=== PATIENT | male | born 1980 | race Caucasian/White ===

== ENCOUNTER → 2017-09-14 11:46 | Outpatient (CLI) | payer OTHER, SELFPAY ==
[2017-09-18 17:52] LABS: Testosterone Free 25.3 pg/mL (35.0-155.0); Testosterone Total 220 ng/dL (250-1100)
== END ==
PROVIDERS: Visit Provider Physician Assistant
DX: E29.1 Testicular hypofunction (principal); Q55.0 Absence and aplasia of testis
CPT/HCPCS: 36415; 84402; 84403

== ENCOUNTER 2018-02-09 02:44 | Emergency (ER) | payer OTHER, SELFPAY ==
--- NOTE | 2018-02-09 02:49 | ED_ITS ---
HPI - Chest Pain General Chief Complaint: Chest Pain Stated Complaint: chest pain left side Time Seen by Provider: 02/09/18 02:49 Source: patient Mode of arrival: ambulatory Limitations: no limitations History of Present Illness HPI narrative: Patient is a 37-year-old otherwise healthy male here for evaluation of left-sided chest pain. He states that the symptoms have been going on for the past couple days. He did take some ibuprofen for that which did not seem to improve. He states that it is left-sided. He states that it is an ache. Not worse with movement. Not worse with palpation. Does say that it is somewhat worse with rule deep inspirations. He is not having any cough. No recent travel. No lower extremity swelling. Has never had anything like this before. Related Data Allergies Allergy/AdvReac Type Severity Reaction Status Date / Time No Known Allergies Allergy Uncoded 02/09/18 02:58 Review of Systems Constitutional Denies fatigue and Denies fever(s) ENT Ears, Nose, Mouth, and Throat: Denies vertigo and Denies dizziness Cardiovascular Reports chest pain, Denies chest pain at rest, Denies syncope, Denies rapid heart rate, Denies pedal edema, Denies irregular heart rhythm, Denies leg edema , Denies lightheadedness, Denies palpitations, Denies dyspnea and Denies slow heart rate Respiratory Denies cough, Denies dyspnea and Denies wheezing Gastrointestinal Gastrointestinal: Denies abdominal pain, Denies nausea and Denies vomiting Musculoskeletal Denies myalgias and Denies arthralgias Integumentary/Breasts Denies rash Neurologic Denies vertigo, Denies dizziness and Denies syncope Endocrine Denies fatigue and Denies palpitations Hematologic/Lymphatic Comments: Not on anticoagulation Allergic/Immunologic Denies wheezing PFSH Medical History Healthy adult (Acute) Surgical History No pertinent past surgical history (Acute) Social History marital status: lives independently: Yes Exam Initial Vital Signs Initial Vital Signs: Vital Signs Temperature 97.9 F 02/09/18 02:50 Pulse Rate 68 02/09/18 02:50 Respiratory Rate 18 02/09/18 02:50 Blood Pressure 118/62 02/09/18 02:50 Pulse Oximetry 99 02/09/18 02:50 Const General: cooperative, healthy appearing, comfortable, well developed, well groomed and No acute distress Orientation: alert, awake and oriented x3 HENMT Head: normal to inspection and normocephalic Chest Chest: normal inspection of the chest, No crepitus and No tenderness Resp Effort & Inspection: normal respiratory effort Auscultation: clear to auscultation bilaterally Cardio Rate: regular rate Rhythm: regular rhythm Pulses: radial pulses present GI Inspection: non-distended Palpation: soft, No firm and No tender Back/Spine/Pelvis Back: No back tenderness Skin Lesions: no lesions Rashes: no rashes Neuro General: alert, awake and oriented x3 Extrem General: normal to inspection, capillary refill normal and No edema Psych Appearance: grossly normal and well kempt Scores HEART Score Heart Score history: Slightly Suspicious Heart Score EKG: Normal Heart Score Age: < 45 years old Heart Score risk factors: No known risk factors Heart Score troponin: < or = to normal limit Heart Score Total: 0 PERC Score Age greater than or equal to 50 years: No Heart rate greater than or equal to 100 bpm: No Room Air O2 Sat less than 95%: No Unilateral leg swelling: No Recent trauma or surgery: No Hemoptysis: No Prior PE or DVT: No Hormone Use: No Total PERC Score: 0 Wells' Criteria for PE Clinical signs and symptoms of PE: No PE is #1 Dx or equally likely: No Heart rate > 100: No Immobilization at least 3 days or surg in previous 4 weeks: No History of PE or DVT: No Hemoptysis: No Malignancy w/Treatment within 6 months or palliative: No Wells' PE Score total: 0 Course Orders Ordered: ED Orders 02/09/18 02:49 EKG-12 Lead Stat 02/09/18 03:23 Basic Metabolic Panel Stat Complete Blood Count AUTO DIFF Stat 02/09/18 03:24 XR chest 2V Stat Troponin I Stat Vital Signs - 8 hr 02/09/18 02:50 02/09/18 04:04 Temperature 97.9 F Pulse Rate 68 64 Respiratory Rate 18 18 Blood Pressure 118/62 Blood Pressure [Left Arm] 120/66 Pulse Oximetry 99 98 MDM - Chest Pain Lab Data Attestation: I reviewed the patient's lab results. Result diagrams: 02/09/18 03:30 02/09/18 03:30 Lab Results 02/09/18 02/09/18 02/09/18 Range/Units 03:30 03:30 03:30 WBC 9.1 (4.5-11.0) X10^3/uL RBC 5.27 (4.5-5.9) X10^6/uL Hgb 16.2 (13.5-17.5) g/dL Hct 47.3 (41-53) % MCV 89.7 (80-100) fL MCH 30.7 (26-34) PG MCHC 34.3 (30-36) % RDW 13.6 (11.6-14.8) % Plt Count 236 (150-400) X10^3/uL Neut % (Auto) 55.6 (50-75) % Lymph % (Auto) 29.4 (25-40) % [place] % (Auto) 7.7 (3-14) % Eos % (Auto) 6.6 H (2-4) % Baso % (Auto) 0.7 (0-2) % Neut # (Auto) 5100 (8911-0398) /uL Sodium 139 (137-145) mmol/L Potassium 3.8 (3.4-5.1) mmol/L Chloride 103 (98-107) mmol/L Carbon Dioxide 26 (22-32) mmol/L BUN 16 (9-20) mg/dL Creatinine 1.00 (0.66-1.25) mg/dL Estimated GFR > 60.0 (>60) mL/min BUN/Creatinine Ratio 16.0 (6-22) Glucose 93 (70-100) mg/dL Calcium 9.2 (8.4-10.2) mg/dL Troponin I < 0.012 (0.01-0.034) ng/mL Imaging Data Chest x-ray: Attestation: I personally reviewed and interpreted this imaging study as follows: My impression: no focal consolidations normal size heart no pneumothorax ECG Data Attestation: I personally reviewed and interpreted this ECG as follows: Prior ECG tracings: not available for review Interpretation: sinus rhythm ventricular rate is 76 normal axis Normal intervals Normal QRS normal QTC No ST T wave changes MDM Narrative Medical decision making narrative: low risk for ACS, low risk for PE. History of physical exam is not consistent for pneumonia. Exam is not consistent with dissection. Chest x-ray is unremarkable. Unsure the exact etiology of his symptoms. I did discuss all this with the patient. He is given return precautions. Will hold on further workup for now. He expressed understanding and agreement with plan. Discharge Plan Departure Patient Disposition: Home Clinical Impression: Atypical chest pain Instructions: DI for Atypical Chest Pain Activity Restrictions/Additional Instructions: recommend you contact your primary care doctor for a follow-up. Return to the emergency department for any new or worsening symptoms.
[2018-02-09 02:50] VITALS: BP 118/62; PULSE 68; RESP 18; TEMP 36.6; O2SAT 99; BMI 27.8
--- NOTE | 2018-02-09 03:24 | DI.RAD.S_ITS ---
PROCEDURE: XR CHEST 2V INDICATIONS: chest pain TECHNIQUE: 2 views of the chest were acquired. COMPARISON: None. FINDINGS: Surgical changes and devices: None. Lungs and pleura: No pleural effusions or pneumothorax. Lungs are clear. Mediastinum: Mediastinal contours are normal. Heart size is normal. Bones and chest wall: No suspicious bony abnormalities. Soft tissues appear unremarkable. IMPRESSION: No acute disease. Dictated by: Martell Samuels M.D. on 02/09/2018 at 8:25 Approved by: Martell Samuesl M.D. on 02/09/2018 at 8:27
[2018-02-09 03:44] LABS: Add Manual Diff / Slide Review NO; Basophils Percent Auto 0.7 % (0-2); Eosinophils Percent Auto 6.6 % (2-4); Hematocrit 47.3 % (41-53); Hemoglobin 16.2 g/dL (13.5-17.5); Lymphocytes Percent Auto 29.4 % (25-40); Mean Corpuscular HGB Conc 34.3 % (30-36); Mean Corpuscular Hemoglobin 30.7 PG (26-34); Mean Corpuscular Volume 89.7 fL (80-100); Monocytes Percent Auto 7.7 % (3-14); Neutrophils Absolute Auto 5100 /uL (3000-5900); Neutrophils Percent Auto 55.6 % (50-75); Platelet Count 236 X10^3/uL (150-400); Red Blood Cell Count 5.27 X10^6/uL (4.5-5.9); Red Cell Distribution Width 13.6 % (11.6-14.8); White Blood Cell Count 9.1 X10^3/uL (4.5-11.0)
[2018-02-09 03:50] LABS: Blood Urea Nitrogen 16 mg/dL (9-20); Calcium 9.2 mg/dL (8.4-10.2); Carbon Dioxide 26 mmol/L (22-32); Chloride 103 mmol/L (98-107); Estimated Glomerular Filt Rate > 60.0 mL/min (>60); Glucose 93 mg/dL (70-100); HEMOLYSIS < 15 (0-50); Potassium 3.8 mmol/L (3.4-5.1); Sodium 139 mmol/L (137-145)
[2018-02-09 04:04] VITALS: BP 120/66; PULSE 64; RESP 18; O2SAT 98
[2018-02-09 04:17] LABS: Troponin I < 0.012 ng/mL (0.01-0.034)
== END 2018-02-09 04:34 | disposition home or self-care (01) ==
PROVIDERS: Emergency Provider Emergency Medicine
DX: R07.89 Other chest pain (principal)
CPT/HCPCS: 36415; 71046; 80048; 84484; 85025; 93005; 99282; 99285

== ENCOUNTER → 2018-07-25 15:43 | Outpatient (CLI) | payer OTHER, SELFPAY ==
[2018-07-25 16:24] LABS: Add Manual Diff / Slide Review NO; Basophils Absolute Auto 0 /uL (0-100); Basophils Percent Auto 0.4 % (0-2); Eosinophils Absolute Auto 500 /uL (0-450); Eosinophils Percent Auto 6.3 % (2-4); Hematocrit 48.2 % (41-53); Hemoglobin 16.8 g/dL (13.5-17.5); Lymphocytes Absolute Auto 2000 /uL (1100-4500); Lymphocytes Percent Auto 26.3 % (25-40); Mean Corpuscular HGB Conc 34.9 % (30-36); Mean Corpuscular Hemoglobin 30.8 PG (26-34); Mean Corpuscular Volume 88.4 fL (80-100); Monocytes Absolute Auto 600 /uL (0-900); Monocytes Percent Auto 7.6 % (3-14); Neutrophils Absolute Auto 4400 /uL (1500-7000); Neutrophils Percent Auto 59.4 % (50-75); Platelet Count 239 X10^3/uL (150-400); Red Blood Cell Count 5.45 X10^6/uL (4.5-5.9); Red Cell Distribution Width 13.7 % (11.6-14.8); White Blood Cell Count 7.4 X10^3/uL (4.5-11.0)
[2018-07-25 16:57] LABS: Alanine Aminotransferase 53 IU/L (21-72); Aspartate Aminotransferase 33 IU/L (17-59)
[2018-07-25 17:26] LABS: Prostate Specific Antigen 0.395 ng/mL (0.10-4.00)
== END ==
DX: E29.1 Testicular hypofunction (principal); Q55.0 Absence and aplasia of testis
CPT/HCPCS: 36415; 84153; 84403; 84450; 84460; 85025

== ENCOUNTER → 2018-10-10 16:05 | Outpatient (CLI) | payer OTHER, SELFPAY ==
[2018-10-10 16:55] LABS: Add Manual Diff / Slide Review NO; Basophils Absolute Auto 0 /uL (0-100); Basophils Percent Auto 0.4 % (0-2); Eosinophils Absolute Auto 200 /uL (0-450); Eosinophils Percent Auto 3.4 % (2-4); Hematocrit 48.1 % (41-53); Hemoglobin 16.5 g/dL (13.5-17.5); Lymphocytes Absolute Auto 1600 /uL (1100-4500); Lymphocytes Percent Auto 24.3 % (25-40); Mean Corpuscular HGB Conc 34.3 % (30-36); Mean Corpuscular Hemoglobin 30.9 PG (26-34); Mean Corpuscular Volume 89.9 fL (80-100); Monocytes Absolute Auto 300 /uL (0-900); Monocytes Percent Auto 4.9 % (3-14); Neutrophils Absolute Auto 4400 /uL (1500-7000); Platelet Count 238 X10^3/uL (150-400); Red Blood Cell Count 5.35 X10^6/uL (4.5-5.9); Red Cell Distribution Width 13.6 % (11.6-14.8); White Blood Cell Count 6.6 X10^3/uL (4.5-11.0)
[2018-10-10 17:13] LABS: Alanine Aminotransferase 45 IU/L (21-72); Aspartate Aminotransferase 32 IU/L (17-59)
[2018-10-10 17:43] LABS: Prostate Specific Antigen 0.499 ng/mL (0.10-4.00)
== END ==
PROVIDERS: PCP Physician Assistant Medical; Visit Provider Physician Assistant Medical
DX: E29.1 Testicular hypofunction (principal); Q55.0 Absence and aplasia of testis
CPT/HCPCS: 36415; 84153; 84403; 84450; 84460; 85025

== ENCOUNTER 2018-11-13 19:51 | Emergency (ER) | payer OTHER, SELFPAY ==
[2018-11-13 20:04] VITALS: BP 138/68; PULSE 73; RESP 18; TEMP 36.8; O2SAT 99; BMI 28.7
--- NOTE | 2018-11-13 20:11 | ED.WOUNDLAC ---
HPI - Wound/Laceration <CASIMIRO Ambrosio - Last Filed: 11/13/18 20:53> General Chief Complaint: Wound/Laceration Stated Complaint: cut on ankle 1/2 Time Seen by Provider: 11/13/18 20:05 Source: patient Mode of arrival: ambulatory Limitations: no limitations History of Present Illness HPI narrative: 38-year-old healthy male, presents emergency department today after falling down some stairs and cutting his right ankle on a hitch. He states this happened a few hours ago, bleeding was controlled with pressure and he is able to move his entire foot. He denies any fevers, chills, bruising to the area, difficulty walking, numbness, or tingling. He states he is unsure as of when his last tetanus was. Related Data Allergies Allergy/AdvReac Type Severity Reaction Status Date / Time No Known Drug Allergies Allergy Verified 11/13/18 20:04 Review of Systems <CASIMIRO Ambrosio - Last Filed: 11/13/18 20:53> Review of Systems Narrative: REVIEW OF SYSTEMS: GENERAL: Denies fever or chills. HENT: Denies head trauma. EYE: Denies double vision or vision loss. CARDIOVASCULAR: Denies syncope. MUSCULOSKELETAL: Denies weakness, or deformities. INTEGUMENTARY: Complains of right ankle laceration, see HPI. NEURO: Denies numbness or tingling. PFSH <CASIMIRO Ambrosio - Last Filed: 11/13/18 20:53> Medical History Healthy adult (Acute) No significant medical problems (Acute) Surgical History No pertinent past surgical history (Acute) Social History (Updated 02/09/18 @ 04:09 by Surya Nascimento DO) marital status: lives independently: Yes Smoking Status: Never smoker Social History marital status: lives independently: Yes Smoking Status: Never smoker Exam <CASIMIRO Ambrosio - Last Filed: 11/13/18 20:53> Initial Vital Signs Initial Vital Signs: Vital Signs Temperature 98.3 F 11/13/18 20:04 Pulse Rate 73 11/13/18 20:04 Respiratory Rate 18 11/13/18 20:04 Blood Pressure 138/68 11/13/18 20:04 Pulse Oximetry 99 11/13/18 20:04 PHYSICAL EXAMINATION: GENERAL: Well groomed, alert, and cooperative. Answers questions promptly and appropriately. Vital signs noted. HENT: Normocephalic, atraumatic. RESPIRATORY: Normal respiratory rate, trachea midline, airway patent. No stridor, nasal flaring or accessory muscle use. MUSCULOSKELETAL: Normal gait and coordination. Equal tone and mass bilaterally. EXTREMITIES: CMS intact. Moves all extremities. Full range of motion of right foot, ankle, and toes. Strength to lower extremities 5/5 equal bilaterally. SKIN: Warm, dry, soft, appropriate color for ethnicity. 2cm laceration to right anterior ankle. Wound bed clean, small amount of subcutaneous tissue visible. Bleeding controlled. No surrounding erythema. Wound was irrigated with 200ml of normal saline. NEURO: Alert and Oriented X 3. Good coordination. PSYCH: Appropriate affect and mood. <Demi Pickett MD - Last Filed: 11/14/18 02:01> Initial Vital Signs Initial Vital Signs: Vital Signs Temperature 98.3 F 11/13/18 20:04 Pulse Rate 73 11/13/18 20:04 Respiratory Rate 18 11/13/18 20:04 Blood Pressure 138/68 11/13/18 20:04 Pulse Oximetry 99 11/13/18 20:04 Procedures <CASIMIRO Ambrosio - Last Filed: 11/13/18 20:53> Laceration Repair Laceration 1: Site: lower extremity Side (If applicable): right Size (cm): 1.5 Description: linear Depth: simple, single layer Local Anesthetic: lidocaine 1%, bupivacaine 0.25% and with bicarb Amount of anesthesia used (mL): 4 Pre-repair: wound explored and irrigated extensively Skin layer closed with: nylon Size (cm): 4-0 Number of sutures: 3 Technique: simple, interrupted Course <CASIMIRO Ambrosio - Last Filed: 11/13/18 20:53> Course Course Narrative: Bacitracin and Band-Aid was applied to wound after sutures. Orders Ordered: Discontinued Medications Bacitracin (Bacitracin) 1 applic TOP NOW ONE Stop: 11/13/18 20:43 Last Admin: 11/13/18 20:47 Dose: 1 applic Documented by: FOREST Diphtheria/Tetanus/Acell Pertussis (Adacel) 0.5 ml IM .ONCE ONE Stop: 11/13/18 20:12 Last Admin: 11/13/18 20:27 Dose: 0.5 ml Documented by: MIRI Lidocaine/Sodium Bicarbonate (Buffered Lidocaine 10 Ml Syr) 10 ml INJ NOW ONE Stop: 11/13/18 20:11 Last Admin: 11/13/18 20:24 Dose: 10 ml Documented by: MIRI Vital Signs Vital signs: Vital Signs - 8 hr 11/13/18 20:04 11/13/18 20:53 Temperature 98.3 F Pulse Rate 73 77 Respiratory Rate 18 14 Blood Pressure 138/68 Blood Pressure [Left Arm] 122/54 L Pulse Oximetry 99 96 <Demi Pickett MD - Last Filed: 11/14/18 02:01> Orders Ordered: Discontinued Medications Bacitracin (Bacitracin) 1 applic TOP NOW ONE Stop: 11/13/18 20:43 Last Admin: 11/13/18 20:47 Dose: 1 applic Documented by: FOREST Diphtheria/Tetanus/Acell Pertussis (Adacel) 0.5 ml IM .ONCE ONE Stop: 11/13/18 20:12 Last Admin: 11/13/18 20:27 Dose: 0.5 ml Documented by: MIRI Lidocaine/Sodium Bicarbonate (Buffered Lidocaine 10 Ml Syr) 10 ml INJ NOW ONE Stop: 11/13/18 20:11 Last Admin: 11/13/18 20:24 Dose: 10 ml Documented by: MIRI Vital Signs Vital signs: Vital Signs - 8 hr 11/13/18 20:04 11/13/18 20:53 Temperature 98.3 F Pulse Rate 73 77 Respiratory Rate 18 14 Blood Pressure 138/68 Blood Pressure [Left Arm] 122/54 L Pulse Oximetry 99 96 MDM - Wound/Laceration <CASIMIRO Ambrosio - Last Filed: 11/13/18 20:53> Medical Records Attestation: I reviewed the patient's medical records. Lab Data Attestation: I reviewed the patient's lab results. MDM Narrative Medical decision making narrative: Simple laceration repair without signs of infection due to and recent injury. Discharge Plan Departure Patient Disposition: Home Clinical Impression: Laceration Discharge Date/Time: 11/13/18 20:57 Instructions: DI for Laceration Repair Activity Restrictions/Additional Instructions: Thank you for entrusting me with your care today. As discussed, I placed 3 sutures in your laceration. Please leave the dressing in place for the next 24 hours, after that you may remove the dressing and wash the area gently with soap. Monitor for signs of infection such as redness, pussy discharge, fevers, or chills. Please return to the emergency department if he develops chest pain, shortness of breath, or syncope. Referrals: Yissel Quach PA-C [Primary Care Provider] -
[2018-11-13] MEDS: LIDO 1%/SOD BICARB 8.4% (10ML) 10 ML SYRINGE INJ (20:24)
[2018-11-13] MEDS: TET,DIPH,PERTUSS(ACELL),VAC/PF 0.5 ML SYRINGE IM (20:27)
[2018-11-13] MEDS: BACITRACIN OINT 0.9 GM PCKT 1 APPLIC TOP (20:47)
[2018-11-13 20:53] VITALS: BP 122/54; PULSE 77; RESP 14; O2SAT 96
== END 2018-11-13 20:57 | disposition home or self-care (01) ==
PROVIDERS: Emergency Provider Nurse Practitioner; PCP Physician Assistant Medical
DX: S91.011A Laceration without foreign body, right ankle, initial encounter (principal); W10.8XXA Fall (on) (from) other stairs and steps, initial encounter
CPT/HCPCS: 12001; 90471; 99282; 90715

== ENCOUNTER → 2019-08-21 17:50 | Outpatient (CLI) | payer OTHER, SELFPAY ==
--- NOTE | 2019-08-21 17:51 | DI.RAD.S_ITS ---
PROCEDURE: XR HAND RT MIN 3V INDICATIONS: jammed my pinky finger TECHNIQUE: 3 views of the hand(s) acquired. COMPARISON: None. FINDINGS: Bones: Intra-articular fracture at the base of the distal phalanx of the right little finger. There is gross articular surface incongruity. Soft tissues: Associated soft tissue swelling IMPRESSION: Markedly displaced intra-articular fracture at the base of the distal phalanx of the right little finger Dictated by: Martell Samuels M.D. on 08/22/2019 at 8:47 Approved by: Martell Samuels M.D. on 08/22/2019 at 8:49
== END ==
PROVIDERS: PCP Student in an Organized Health Care Education/Training Program; Referring Provider Student in an Organized Health Care Education/Training Program; Visit Provider Student in an Organized Health Care Education/Training Program
DX: M79.641 Pain in right hand (principal); S62.636A Displaced fracture of distal phalanx of right little finger, initial encounter for closed fracture; W23.0XXA Caught, crushed, jammed, or pinched between moving objects, initial encounter
CPT/HCPCS: 73130

== ENCOUNTER → 2020-07-12 11:43 | Outpatient (CLI) | payer OTHER, SELFPAY ==
[2020-07-12 12:46] LABS: Hematocrit 50.1 % (41-53); Hemoglobin 16.8 g/dL (13.5-17.5)
[2020-07-12 13:05] LABS: Cholesterol 187 mg/dL (140-199); HDL Cholesterol 41 mg/dL (40-60); LDL Cholesterol Calculated 125 mg/dL (<100); Triglycerides 106 mg/dL (35-150)
[2020-07-12 13:38] LABS: Testosterone 842 ng/dL (132-813)
== END ==
PROVIDERS: PCP Student in an Organized Health Care Education/Training Program; Referring Provider Student in an Organized Health Care Education/Training Program; Visit Provider Student in an Organized Health Care Education/Training Program
DX: E34.9 Endocrine disorder, unspecified (principal); Z13.220 Encounter for screening for lipoid disorders
CPT/HCPCS: 36415; 80061; 84403; 85014; 85018

== ENCOUNTER → 2020-10-14 09:21 | Outpatient (CLI) | payer OTHER, SELFPAY ==
--- NOTE | 2020-10-14 09:22 | DI.RAD.S_ITS ---
PROCEDURE: XR KNEE RT 3V INDICATIONS: Right knee pain TECHNIQUE: 3 views of the knee were acquired. COMPARISON: None. FINDINGS: Bones: No fractures or dislocations. No suspicious bony lesions. Soft tissues: No joint effusion. No suspicious soft tissue calcifications. IMPRESSION: No definite radiographic abnormality. If pain persists with conservative management, consider cross sectional imaging such as CT or MRI for further assessment. Dictated by: Kiko Robbins [facility] Interpreted: Harinder Frank MD on 10/14/2020 at 10:29 Transcribed by: BAILEE on 10/14/2020 at 10:29 Approved by: Harinder Frank M.D. on 10/14/2020 at 15:41
== END ==
PROVIDERS: PCP Student in an Organized Health Care Education/Training Program; Referring Provider Student in an Organized Health Care Education/Training Program; Visit Provider Student in an Organized Health Care Education/Training Program
DX: M25.561 Pain in right knee (principal)
CPT/HCPCS: 73562

== ENCOUNTER → 2020-10-30 07:17 | Outpatient (CLI) | payer OTHER, SELFPAY ==
[2020-11-07 16:36] LABS: Percent Free Testosterone 3.92 % (1.50-4.20); Testosterone Free 23.25 ng/dL (5.00-21.00)
== END ==
PROVIDERS: PCP Student in an Organized Health Care Education/Training Program; Referring Provider Student in an Organized Health Care Education/Training Program; Visit Provider Student in an Organized Health Care Education/Training Program
DX: E34.9 Endocrine disorder, unspecified (principal)
CPT/HCPCS: 36415; 84402; 84403

== ENCOUNTER → 2021-05-26 16:58 | Outpatient (CLI) | payer OTHER, SELFPAY ==
[2021-05-26 18:52] LABS: Testosterone 645 ng/dL (132-813)
== END ==
PROVIDERS: PCP Student in an Organized Health Care Education/Training Program; Referring Provider Student in an Organized Health Care Education/Training Program; Visit Provider Student in an Organized Health Care Education/Training Program
DX: E34.9 Endocrine disorder, unspecified (principal)
CPT/HCPCS: 36415; 84403

== ENCOUNTER → 2021-12-12 15:01 | Outpatient (CLI) | payer OTHER, SELFPAY ==
[2021-12-12 17:17] LABS: Hemoglobin 16.6 g/dL (13.5-17.5); Mean Corpuscular HGB Conc 34.6 % (30-36); Mean Corpuscular Hemoglobin 30.3 PG (26-34); Mean Corpuscular Volume 87.4 fL (80-100); Platelet Count 279 X10^3/uL (150-400); Red Blood Cell Count 5.49 X10^6/uL (4.5-5.9); Red Cell Distribution Width 13.5 % (11.6-14.8); White Blood Cell Count 8.1 X10^3/uL (4.5-11.0)
[2021-12-12 18:12] LABS: Testosterone 130 ng/dL (132-813)
== END ==
PROVIDERS: PCP Student in an Organized Health Care Education/Training Program; Referring Provider Student in an Organized Health Care Education/Training Program; Visit Provider Student in an Organized Health Care Education/Training Program
DX: Q55.0 Absence and aplasia of testis (principal); R06.83 Snoring; E34.9 Endocrine disorder, unspecified
CPT/HCPCS: 36415; 84403; 85027

== ENCOUNTER → 2022-02-20 16:01 | Outpatient (CLI) | payer OTHER, SELFPAY ==
[2022-02-20 17:30] LABS: Testosterone 687 ng/dL (132-813)
== END ==
PROVIDERS: PCP Student in an Organized Health Care Education/Training Program; Referring Provider Student in an Organized Health Care Education/Training Program; Visit Provider Student in an Organized Health Care Education/Training Program
DX: Q55.0 Absence and aplasia of testis (principal)
CPT/HCPCS: 36415; 84403

== ENCOUNTER 2022-03-21 16:36 | Emergency (ER) | payer OTHER, SELFPAY ==
[2022-03-21 16:46] VITALS: BP 171/85; PULSE 65; RESP 18; TEMP 36.7; O2SAT 99; BMI 28.5
[2022-03-21 17:18] LABS: Alanine Aminotransferase 47 IU/L (<50); Albumin 4.3 g/dL (3.5-5.0); Albumin Globulin Ratio 1.3 (1.0-2.8); Alkaline Phosphatase 70 U/L (38-126); Aspartate Aminotransferase 38 IU/L (17-59); Bilirubin Total 1.4 mg/dL (0.2-1.3); Blood Urea Nitrogen 15 mg/dL (9-20); Calcium 8.6 mg/dL (8.4-10.2); Carbon Dioxide 24 mmol/L (22-32); Chloride 102 mmol/L (98-107); Estimated Glomerular Filt Rate > 60 mL/min (>60); Globulin 3.2 g/dL (1.7-4.1); Glucose 90 mg/dL (70-100); HEMOLYSIS 15 (0-50); Lipase 42 U/L (23-300); Sodium 135 mmol/L (137-145); Total Protein 7.5 g/dL (6.3-8.2)
[2022-03-21 17:22] LABS: Add Manual Diff / Slide Review NO; Basophils Absolute Auto 0 /uL (0-100); Basophils Percent Auto 0.4 % (0-2); Eosinophils Absolute Auto 300 /uL (0-450); Hematocrit 49.6 % (41-53); Hemoglobin 17.1 g/dL (13.5-17.5); Lymphocytes Absolute Auto 1000 /uL (1100-4500); Lymphocytes Percent Auto 10.7 % (25-40); Mean Corpuscular HGB Conc 34.6 % (30-36); Mean Corpuscular Hemoglobin 30.6 PG (26-34); Mean Corpuscular Volume 88.7 fL (80-100); Monocytes Absolute Auto 800 /uL (0-900); Monocytes Percent Auto 8.6 % (3-14); Neutrophils Absolute Auto 7300 /uL (1500-7000); Neutrophils Percent Auto 77.3 % (50-75); Platelet Count 230 X10^3/uL (150-400); Red Blood Cell Count 5.59 X10^6/uL (4.5-5.9); Red Cell Distribution Width 13.7 % (11.6-14.8); White Blood Cell Count 9.5 X10^3/uL (4.5-11.0)
--- NOTE | 2022-03-21 17:39 | DI.US.S_ITS ---
PROCEDURE: US ABDOMEN LIMITED INDICATIONS: EPIGASTRIC PAIN TECHNIQUE: Real-time scanning was performed of the abdominal and retroperitoneal organs, with image documentation. COMPARISON: None. FINDINGS: Liver: Liver is normal in size and homogeneous in echotexture. There is a homogeneous hyperechoic lesion within the mid right hepatic lobe measuring 0.5 x 0.5 x 0.4 cm. No vascularity seen. Findings may represent a small hemangioma. Gallbladder: Gallbladder contains a 5 mm isoechoic well-circumscribed focus that is not mobile and nonvascular. It appears to be within the gallbladder body. No posterior shadowing. No gallbladder wall thickening. No pericholecystic fluid. Negative sonographic Mcgowan sign. No evidence for gallbladder sludge. No mobile gallstones identified. Biliary ducts: Extrahepatic bile ducts are non-dilated. Extrahepatic bile duct caliber measures 5 mm. Normal is 6-7 mm or less in diameter, or 10 mm or less post-cholecystectomy. There is prominence of the intrahepatic ducts within the left hepatic lobe. This is nonspecific. Pancreas: Visualized portions of the pancreas are sonographically normal. Miscellaneous: No free abdominal fluid. IMPRESSION: 1. A 5 mm non mobile, isoechoic focus in the gallbladder body which may represent a small gallbladder polyp versus adherent sludge ball/gallstone. Otherwise, no mobile cholelithiasis seen. No evidence for acute cholecystitis. 2. A nonspecific 0.5 cm hyperechoic lesion in the right hepatic lobe likely representing a hemangioma. Otherwise, no acute sonographic abnormality identified in the abdomen. Attention to these findings can be made on follow-up imaging. Dictated by: Lanre Tsang M.D. on 03/21/2022 at 19:46 Approved by: Lanre Tsang M.D. on 03/21/2022 at 19:53
--- NOTE | 2022-03-21 18:11 | ED.ABDPAIN ---
HPI - Abdominal Pain General Chief Complaint: Abdominal Pain Stated Complaint: Abdominal Pain Time Seen by Provider: 03/21/22 17:38 Mode of arrival: Ambulatory History of Present Illness HPI narrative: 41-year-old male nonsmoker without significant medical history presents with a chief complaint upper abdominal pain for about 36 hours or so. He states he thinks it seemed to start after a rather intense workout. He denies any obvious provocation, palliation or radiation. He states that since then he is had decreased appetite and maybe some nausea but certainly no vomiting. He has had some loose stools and states this does not seem to correlate with the discomfort in his upper abdomen. He denies any fever or chills. He does not drink alcohol. He denies any dizziness, weakness or lightheadedness. He is otherwise well and free of complaint. Related Data Previous Rx's Medication Instructions Recorded testosterone cypionate 200 mg/mL 200 mg IM Q3W #2 mL 02/21/22 intramuscular oil ondansetron 4 mg disintegrating 4 mg PO TID-QID PRN nausea and 03/21/22 tablet vomiting #10 tabs pantoprazole 40 mg tablet,delayed 40 mg PO DAILY #30 tabs 03/21/22 release (Protonix) Allergies Allergy/AdvReac Type Severity Reaction Status Date / Time No Known Drug Allergies Allergy Verified 01/21/21 14:18 Review of Systems Review of Systems Narrative: GENERAL: Denies chills, fatigue, malaise, fever, sweats. HEENT: Denies sinus pain, ear pain, sore throat, difficulty swallowing, dizziness. RESPIRATORY: Denies dyspnea, cough, wheezing, hemoptysis, sputum. CARDIOVASCULAR: Denies chest pain, palpitations, orthopnea, edema, GASTROINTESTINAL: See HPI : Denies dysuria, frequency, incontinence, hematuria, urinary retention. MUSCULOSKELETAL: denies weakness, joint pain, or bony pain SKIN: Denies rash, skin lesions, or other NEUROLOGIC: Denies weakness, headache, numbness, change in speech, confusion, seizures, incoordination. PSYCHIATRIC: No concerning psychosocial issues. 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 Well-developed patient, in mild distress. HEAD: Atraumatic. Normocephalic. EYES: Pupils equal round and reactive. Extraocular motions intact. No scleral icterus. No injection or drainage. ENT: Nose without bleeding, purulent drainage. Throat without erythema, tonsillar hypertrophy or exudate. Airway patent. NECK: Trachea midline. Non tender CARDIOVASCULAR: Regular rate and rhythm without murmurs, gallops, or rubs. RESPIRATORY: Clear to auscultation. Breath sounds equal bilaterally. No wheezes, rales, or rhonchi. GASTROINTESTINAL: Abdomen soft, mild epigastric pain on palpation, nondistended. Bowel sounds present in all 4 quadrants EXTREMITIES: No edema or joint tenderness. BACK: Nontender without deformity or crepitance. No flank tenderness. NEURO: AOx3. SKIN: No rash or erythema of visible areas Initial Vital Signs Initial Vital Signs: Vital Signs Temperature 98.1 F 03/21/22 16:46 Pulse Rate 65 03/21/22 16:46 Respiratory Rate 18 03/21/22 16:46 Blood Pressure 171/85 H 03/21/22 16:46 Pulse Oximetry 99 03/21/22 16:46 Oxygen Delivery Method 03/21/22 16:46 Course Orders Ordered: Discontinued Medications Sodium Chloride (Normal Saline 0.9%) 1,000 mls @ 1,000 mls/hr IV BOLUS ONE Stop: 03/21/22 18:38 Last Infusion: 03/21/22 19:06 Dose: 0 mls/hr Documented By: Admin: 03/21/22 18:13 Dose: 1,000 mls/hr Documented By: TAMAR Ondansetron HCl (Ondansetron 4 Mg/2 Ml Inj) 4 mg IV NOW PRN PRN Reason: Nausea And Vomiting Last Admin: 03/21/22 18:12 Dose: 4 mg Documented By: TAMAR Pantoprazole Sodium (Pantoprazole 40 Mg Vial) 40 mg IV NOW ONE Stop: 03/21/22 17:40 Last Admin: 03/21/22 18:13 Dose: 40 mg Documented By: TAMAR Vital Signs Vital signs: Vital Signs - 8 hr 03/21/22 16:46 03/21/22 18:28 Temperature 98.1 F Pulse Rate 65 67 Respiratory Rate 18 Blood Pressure 171/85 H 140/68 Pulse Oximetry 99 98 Oxygen Delivery Method Room Air Room Air MDM - Abdominal Pain Lab Data Result diagrams: 03/21/22 17:00 03/21/22 17:00 Labs: Lab Results 03/21/22 03/21/22 03/21/22 Range/Units 17:00 17:00 18:21 WBC 9.5 (4.5-11.0) X10^3/uL RBC 5.59 (4.5-5.9) X10^6/uL Hgb 17.1 (13.5-17.5) g/dL Hct 49.6 (41-53) % MCV 88.7 (80-100) fL MCH 30.6 (26-34) PG MCHC 34.6 (30-36) % RDW 13.7 (11.6-14.8) % Plt Count 230 (150-400) X10^3/uL Neut % (Auto) 77.3 H (50-75) % Lymph % (Auto) 10.7 L (25-40) % Morgan % (Auto) 8.6 (3-14) % Eos % (Auto) 3.0 (2-4) % Baso % (Auto) 0.4 (0-2) % Neut # (Auto) 7300 H (8682-2429) /uL Lymph # (Auto) 1000 L (4817-7786) /uL Morgan # (Auto) 800 (0-900) /uL Eos # (Auto) 300 (0-450) /uL Baso # (Auto) 0 (0-100) /uL Sodium 135 L (137-145) mmol/L Potassium 4.0 (3.4-5.1) mmol/L Chloride 102 (98-107) mmol/L Carbon Dioxide 24 (22-32) mmol/L BUN 15 (9-20) mg/dL Creatinine 1.07 (0.66-1.25) mg/dL Estimated GFR > 60 (>60) mL/min BUN/Creatinine Ratio 14.0 (6-22) Glucose 90 (70-100) mg/dL Calcium 8.6 (8.4-10.2) mg/dL Total Bilirubin 1.4 H (0.2-1.3) mg/dL AST 38 (17-59) IU/L ALT 47 (<50) IU/L Alkaline Phosphatase 70 (38-126) U/L Total Protein 7.5 (6.3-8.2) g/dL Albumin 4.3 (3.5-5.0) g/dL Globulin 3.2 (1.7-4.1) g/dL Albumin/Globulin Ratio 1.3 (1.0-2.8) Lipase 42 (23-300) U/L Urine RBC 0-1/hpf (0-5/HPF) Urine WBC None seen (0-5/HPF) Urine Bacteria None seen (None) Ur Culture Indicated? Cult not indicated Point of care testing: Urine Dip Bedside Urine Glucose Negative Bedside Urine Bilirubin - Negative Bedside Urine Ketone ++ 40 Urine Specific [place] 1.015 Bedside Urine Occult Blood + Bedside Urine pH 6 Bedside Urine Protein - Negative Bedside Urine Urobilinogen - Negative Bedside Urine Nitrite - Negative Bedside Urine Leukocytes - Negative Esterase MDM Narrative Medical decision making narrative: [41-year-old male with abdominal pain and diarrhea] Multiple etiologies for patient's symptoms considered including, but not limited to: [Gallbladder disease, pancreatitis, enteritis, musculoskeletal pain] Prior Charts reviewed: Including PCP visits from 2020 Labs reviewed and interpreted by myself: No significant abnormality noted Imaging reviewed: A 5 mm nonmobile focus in the gallbladder body which maybe a small polyp versus adherent sludge or gallstones. No obvious evidence of obstructive cholecystitis Patient's symptoms improved over duration of stay with above-stated therapies. Findings and discharge diagnosis discussed with patient/family followed by verbalization of understanding Return precautions discussed with patient/family whom verbalize understanding of diagnosis and plan Discharge Plan Departure Patient Disposition: Home Clinical Impression: Abdominal pain Instructions: DI for Abdominal Pain-Adult Activity Restrictions/Additional Instructions: *You have been diagnosed with [abdominal pain] * As we discussed your history and physical exam as well as labs and imaging are very reassuring. There is no evidence of any severe diagnoses that would require a specific or immediate intervention. *What to do: *Please continue to take your regular medications as directed. [x ] New medication prescriptions sent to your pharmacy: [[facility] ] *Please follow up with your primary care provider in 2-3 days, call for an appointment. Let them know you were seen in the Emergency Department and that we ask that you be seen in follow up. We will electronically transmit a record of today's note if your PCP is in our system *Please consider a clear liquid diet for the next 24-48 hours and then slowly advance to regular as tolerated. Also, try to avoid alcohol, nicotine, caffeine, spicy, acidic or fatty foods as this may worsen your symptoms *If you do not have a primary care provider please contact the [facility] Resource line at [phone]. They will ask some questions about your medical history and help get you set up with a doctor in the community. *Return to Emergency Department if you should have any new, worsening or concerning symptoms, such as [fever greater than 101 F, shaking chills, worsening pain, persistent vomiting or other bothersome symptoms] Prescriptions: New pantoprazole [Protonix] 40 mg tablet,delayed release (DR/EC) 40 mg PO DAILY Qty: 30 0RF ondansetron 4 mg tablet,disintegrating 4 mg PO TID-QID PRN (Reason: nausea and vomiting) Qty: 10 0RF No Action testosterone cypionate 200 mg/mL oil 200 mg IM Q3W Qty: 2 4RF Referrals: Celio Eli MD [Primary Care Provider] - Stand Alone Forms: Patient Portal/API
[2022-03-21] MEDS: ONDANSETRON 4 MG/2 ML INJ IV (18:12)
[2022-03-21] MEDS: PANTOPRAZOLE 40 MG VIAL IV (18:13)
[2022-03-21] MEDS: SODIUM CHLORIDE 0.9% 1,000 ML 1000 ML IV (18:13)
[2022-03-21 18:28] VITALS: BP 140/68; PULSE 67; O2SAT 98
[2022-03-21 18:55] LABS: Bacteria Urine None Seen; Culture Indicated Urine Cult Not Indicated; RBC Urine 0-1/HPF (0-5/HPF); WBC Urine None Seen (0-5/HPF)
[2022-03-21 20:50] VITALS: BP 105/62; PULSE 87; O2SAT 100
== END 2022-03-21 20:59 | disposition home or self-care (01) ==
PROVIDERS: Emergency Medicine; Emergency Provider Emergency Medicine; PCP Student in an Organized Health Care Education/Training Program
DX: R10.10 Upper abdominal pain, unspecified (principal)
CPT/HCPCS: 36415; 76705; 80053; 81003; 81015; 83690; 85025; 87086; 96374; 96375; 99284; C9113; J2405

== ENCOUNTER → 2022-05-28 12:22 | Outpatient (CLI) | payer OTHER, SELFPAY ==
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
== END ==
PROVIDERS: PCP Student in an Organized Health Care Education/Training Program; Referring Provider Nurse Practitioner Family; Visit Provider Nurse Practitioner Family
DX: M25.561 Pain in right knee (principal); M25.461 Effusion, right knee
CPT/HCPCS: 73562

== ENCOUNTER → 2022-06-09 19:26 | Outpatient (CLI) | payer OTHER, SELFPAY ==
--- NOTE | 2022-06-09 | DI.MRI.S_ITS ---
PROCEDURE: MR KNEE LT WO CON INDICATIONS: LEFT KNEE PAIN TECHNIQUE: Noncontrast sagittal PD fast spin echo and T2 fast spin echo with fat saturation, sagittal 3-D FLASH with fat saturation; coronal T1 spin echo and PD fast spin echo with fat saturation, and axial PD fast spin echo with fat saturation through the knee. COMPARISON: [facility], CR, XR KNEE LT 3V, 05/28/2022, 12:35. FINDINGS: Image quality: Excellent. Anterior Cruciate Ligament: There is complete tearing of the midsubstance of the anterior cruciate ligament. Posterior Cruciate Ligament: Intact. Medial Collateral Ligament: Mild edema is seen surrounding the midportion of the medial collateral ligament, consistent with a low-grade sprain. Lateral Collateral Ligament: Intact. Medial Meniscus: Intact. Lateral Meniscus: Intact. Medial and Lateral Tendons: The semimembranosus tendon insertions and meniscocapsular junction appear intact. Visualized portions of the pes anserinus tendons appear normal. No abnormal bursal fluid. The long and short heads of the biceps femoris tendon appear intact. The popliteus tendon appears intact. No signs of posterolateral corner injury. Iliotibial band appears normal. Anterior Structures: The quadriceps and patellar tendons appear intact. No patellar subluxation. No femoral trochlear dysplasia or ventral trochlear prominence. No edema in the infrapatellar fat pad. Bones: Osseous edema is seen at the far posterior portion of the medial and lateral tibial plateau and the anterior weight-bearing portion of the lateral femoral condyle, consistent with impaction trabecular bone injuries related to a pivot-shift injury. Articular cartilages: No focal cartilage defect. Soft Tissues: Moderate to large joint effusion. Trace medial popliteal cyst. The musculature surrounding the knee is normal in bulk. IMPRESSION: 1. Complete tearing of the midsubstance of the anterior cruciate ligament. 2. Grade 1 sprain of the mid medial collateral ligament. 3. Impaction trabecular bone injuries in the far posterior portions of the lateral and medial tibial plateau and the anterior weight-bearing portion of the lateral femoral condyle, consistent with a pivot-shift injury mechanism. 4. No meniscal tear is seen. No focal cartilage defect. 5. Moderate to large joint effusion. Approved by: Yury Sifuentes M.D. on 06/10/2022 at 8:57
== END ==
PROVIDERS: Family Provider Student in an Organized Health Care Education/Training Program; PCP Student in an Organized Health Care Education/Training Program; Referring Provider Student in an Organized Health Care Education/Training Program; Visit Provider Student in an Organized Health Care Education/Training Program
DX: S83.512A Sprain of anterior cruciate ligament of left knee, initial encounter (principal); S83.412A Sprain of medial collateral ligament of left knee, initial encounter; M25.562 Pain in left knee; M25.462 Effusion, left knee
CPT/HCPCS: 73721

== ENCOUNTER 2022-07-09 16:45 | Outpatient (RCR) | payer OTHER, SELFPAY ==
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
--- NOTE | 2022-06-05 16:27 | PT.OTN ---
Current Diagnoses Pain in right knee (06/05/22) Physical Therapy Treatment Note PT-OP-A Visit Information Start: 06/02/22 10:36 Freq: Status: Active Protocol: Document 06/05/22 14:55 TH (Rec: 06/05/22 16:27 TH [id number]) Out-Patient Physical Therapy Visit Information Visit Information Visit Type Treatment Note Visit Note Pt states symptoms are slightly better but still significant with weight bear and bending knee. Pt has started using SPC as recommended. Visit Start Time 15:18 Visit Stop Time 16:00 Total Visit Minutes 43 Visit Number 2 Number of EBD TEACHER Visits 0 PT-OP-B Current Condition Start: 06/02/22 10:36 Freq: Status: Active Protocol: Document 06/02/22 10:37 TH (Rec: 06/02/22 12:19 TH [id number]) Current Condition History of Current Condition History of Current Condition see visit note PT-OP-E Functional Tests Start: 06/02/22 10:36 Freq: Status: Active Protocol: Document 06/02/22 10:37 TH (Rec: 06/02/22 12:19 TH [id number]) Functional Tests Other Ant/post drawer Comment neg McMurrays Comment neg MCL/LCL stress test Comment neg PT-OP-K Range of Motion Start: 06/02/22 10:36 Freq: Status: Active Protocol: Document 06/02/22 10:37 TH (Rec: 06/02/22 12:19 TH [id number]) Knee Goniometric Range of Motion Knee Left Flexion Active (degrees) 89 Extension Active (degrees) 5 Comments Knee flexion improved post manual 93 PT-OP-Q Treatments Start: 06/02/22 10:36 Freq: Status: Active Protocol: Document 06/05/22 14:55 TH (Rec: 06/05/22 16:27 TH [id number]) Therapeutic Exercises Other Exercises terminal knee extension Comments 1 x 10 hold 5 sec Manual Therapy Treatment Manual Techniques Tack and stretch Comments left bicep femoris IASTM Comments Left bicep femoris PT-OP-R Modalities Start: 06/02/22 10:36 Freq: Status: Active Protocol: Document 06/05/22 14:55 TH (Rec: 06/05/22 16:27 TH [id number]) Ultrasound Therapy Treatment left Mode Setting Pulsed Duty Cycle 20% Comments left bicep femoris tendon PT-OP-T Assessment and Plan Start: 06/02/22 10:36 Freq: Status: Active Protocol: Document 06/05/22 14:55 TH (Rec: 06/05/22 16:27 TH [id number]) Physical Therapy Assessment Goals 3 Impairment Difficulty navigating steps Short Term Goal (STG) Pt will be able to navigate 1 flight of stairs with alternating step pattern and minimal left knee pain. STG Duration 07/14/22 Electricity Trading Analyst Goal (LTG) Pt will be able to navigate 1 flight of stairs with alternating step pattern and no left knee pain. LTG Duration 08/25/22 2 Impairment left knee rom limited Short Term Goal (STG) Left knee ext/flex will improve to WFL. STG Duration 07/14/22 6 weeks Usp Goal (LTG) Left knee ext/flex will improve to WNL. LTG Duration 08/25/22 12 weeks 1 Impairment Difficult to ambulate with FWB through LLE due to pain. Short Term Goal (STG) Pt will be able to ambulate 50 feet on even terrain with 75 % weight bear through LLE with minimal pain. STG Duration 07/14/22 6 weeks Electricity Trading Analyst Goal (LTG) Pt will be able to ambulate 100+ feet on even/uneven terrain with 100 % weight bear through LLE without pain. LTG Duration 08/25/22 12 weeks Assessment Summary Assessment Pt making steady progress as demonstrated by improved knee flexion especially after today 's rx. He continues to have pain / tightening across lateral retinaculum, and posterior knee with knee flexion past 95 degrees. Physical Therapy Plan Frequency and Duration Frequency of Treatment 1-2x/wk Duration of treatment (weeks) 12 Plan of Care Start Date 06/02/22 Plan of Care End Date 08/18/22 Therapeutic Interventions Therapeutic Interventions Balance Training,Coordination Training,Gait Training,Home Exercise Program,Joint Mobilizations,Manual Therapy, Neuromuscular Re-education, Patient/Caregiver Education, Self-Care/Home Management,Soft Tissue Mobilization,Taping, Therapeutic Activities, Therapeutic Exercises Modalities Cold Pack/Ice Massage,Electric Stimulation,Hot Packs, Traction- Mechanical, Ultrasound Next Visit Focus/Plan Next Visit Plan IASTM quads/retinaculum and popliteus HS sets if tolerated LAQ
--- NOTE | 2022-06-09 10:01 | PT.OIE ---
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 Ham Attending Provider Advanced Manager Configuration Referring Provider Specialty: Medical Address: [address] [place] [address], [id number] Email: [email or web address] Physical Therapy Initial Evaluation PT-OP-A Visit Information Start: 06/02/22 10:36 Freq: Status: Active Protocol: Document 06/09/22 09:12 TH (Rec: 06/09/22 10:01 [id number]) Out-Patient Physical Therapy Visit Information Visit Information Visit Type Treatment Note Visit Note Pt. states symptoms are slighty better though still having pain with to posterior knee / medial pain and quad pain. Visit Start Time 09:00 Visit Stop Time 09:45 Total Visit Minutes 45 Visit Number 3 Number of CCO & PRESIDENT Visits 0 PT-OP-B Current Condition Start: 06/02/22 10:36 Freq: Status: Active Protocol: Document 06/02/22 10:37 TH (Rec: 06/02/22 12:19 TH [id number]) Current Condition History of Current Condition History of Current Condition see visit note PT-OP-E Functional Tests Start: 06/02/22 10:36 Freq: Status: Active Protocol: Document 06/02/22 10:37 TH (Rec: 06/02/22 12:19 TH [id number]) Functional Tests Other Ant/post drawer Comment neg McMurrays Comment neg MCL/LCL stress test Comment neg PT-OP-K Range of Motion Start: 06/02/22 10:36 Freq: Status: Active Protocol: Document 06/09/22 09:12 TH (Rec: 06/09/22 10:01 [id number]) Knee Goniometric Range of Motion Knee Left Patient Position Sitting Flexion Active (degrees) 95 Extension Active (degrees) 3 PT-OP-Q Treatments Start: 06/02/22 10:36 Freq: Status: Active Protocol: Document 06/09/22 09:12 TH (Rec: 06/09/22 10:01 [id number]) Manual Therapy Treatment Manual Techniques Tack and stretch Comments left bicep femoris IASTM Comments left popliteus/bicep femoris PT-OP-R Modalities Start: 06/02/22 10:36 Freq: Status: Active Protocol: Document 06/09/22 09:12 TH (Rec: 06/09/22 10:01 [id number]) Electric Stimulation Electric Stimulation left posterior knee Comments ESTIM + HEAT PT-OP-T Assessment and Plan Start: 06/02/22 10:36 Freq: Status: Active Protocol: Document 06/09/22 09:12 TH (Rec: 06/09/22 10:01 [id number]) Physical Therapy Assessment Goals 3 Impairment Difficulty navigating steps Short Term Goal (STG) Pt will be able to navigate 1 flight of stairs with alternating step pattern and minimal left knee pain. STG Duration 07/14/22 Mcfp Goal (LTG) Pt will be able to navigate 1 flight of stairs with alternating step pattern and no left knee pain. LTG Duration 08/25/22 2 Impairment left knee rom limited Short Term Goal (STG) Left knee ext/flex will improve to WFL. STG Duration 07/14/22 6 weeks Mcfp Goal (LTG) Left knee ext/flex will improve to WNL. LTG Duration 08/25/22 12 weeks 1 Impairment Difficult to ambulate with FWB through LLE due to pain. Short Term Goal (STG) Pt will be able to ambulate 50 feet on even terrain with 75 % weight bear through LLE with minimal pain. STG Duration 07/14/22 6 weeks Mcfp Goal (LTG) Pt will be able to ambulate 100+ feet on even/uneven terrain with 100 % weight bear through LLE without pain. LTG Duration 08/25/22 12 weeks Assessment Summary Assessment Pt is making slow but steady progress with left knee rom. He states he continues to feel pain /tension to quads, posterior/lateral knee with knee flexion beyond 90 degrees . Recommended he request mri from MD to r/o muscle/tendon tear/meniscal involvement. Physical Therapy Plan Frequency and Duration Frequency of Treatment 1-2x/wk Duration of treatment (weeks) 12 Plan of Care Start Date 06/02/22 Plan of Care End Date 08/18/22 Therapeutic Interventions Therapeutic Interventions Balance Training,Coordination Training,Gait Training,Home Exercise Program,Joint Mobilizations,Manual Therapy, Neuromuscular Re-education, Patient/Caregiver Education, Self-Care/Home Management,Soft Tissue Mobilization,Taping, Therapeutic Activities, Therapeutic Exercises Modalities Cold Pack/Ice Massage,Electric Stimulation,Hot Packs, Traction- Mechanical, Ultrasound Next Visit Focus/Plan Next Visit Plan gentle rom /strengthening isometric ex. awaiting mri and results to r/o meniscus/ tendon tear.
--- NOTE | 2022-06-16 16:27 | PT.OTN ---
Current Diagnoses Pain in right knee (06/16/22) Physical Therapy Treatment Note PT-OP-A Visit Information Start: 06/02/22 10:36 Freq: Status: Active Protocol: Document 06/16/22 16:20 TH (Rec: 06/16/22 16:27 TH [id number]) Out-Patient Physical Therapy Visit Information Visit Information Visit Type Treatment Note Visit Start Time 03:15 Visit Stop Time 04:00 Total Visit Minutes 45 Visit Number 4 Number of INSTALLATION SUPERVISOR Visits 0 Precautions Precautions Complete tear ACL avoid stand pivot ex. PT-OP-B Current Condition Start: 06/02/22 10:36 Freq: Status: Active Protocol: Document 06/02/22 10:37 TH (Rec: 06/02/22 12:19 TH [id number]) Current Condition History of Current Condition History of Current Condition see visit note PT-OP-C Subjective Start: 06/02/22 10:36 Freq: Status: Active Protocol: Document 06/16/22 16:20 TH (Rec: 06/16/22 16:27 TH [id number]) OP-PT Subjective Patient Comments Patient Comments Pt reports having mri done. See results below. IMPRESSION: 1. Complete tearing of the midsubstance of the anterior cruciate ligament. 2. Grade 1 sprain of the mid medial collateral ligament. 3. Impaction trabecular bone injuries in the far posterior portions of the lateral and medial tibial plateau and the anterior weight-bearing portion of the lateral femoral condyle, consistent with a pivot-shift injury mechanism. 4. No meniscal tear is seen. No focal cartilage defect. 5. Moderate to large joint effusion. PT-OP-E Functional Tests Start: 06/02/22 10:36 Freq: Status: Active Protocol: Document 06/02/22 10:37 TH (Rec: 06/02/22 12:19 TH [id number]) Functional Tests Other Ant/post drawer Comment neg McMurrays Comment neg MCL/LCL stress test Comment neg PT-OP-K Range of Motion Start: 06/02/22 10:36 Freq: Status: Active Protocol: Document 06/09/22 09:12 TH (Rec: 06/09/22 10:01 TH [id number]) Knee Goniometric Range of Motion Knee Left Patient Position Sitting Flexion Active (degrees) 95 Extension Active (degrees) 3 PT-OP-Q Treatments Start: 06/02/22 10:36 Freq: Status: Active Protocol: Document 06/16/22 16:20 TH (Rec: 06/16/22 16:27 TH [id number]) Therapeutic Exercises Other Exercises resisted HS Comments 2 x10 pink band knee /hip alignment knee ext., Comments 2 x 10 pink band knee /hip alignment Manual Therapy Treatment Manual Techniques IASTM Comments left quads with active knee flexion/ biceps femoris PT-OP-R Modalities Start: 06/02/22 10:36 Freq: Status: Active Protocol: Document 06/09/22 09:12 TH (Rec: 06/09/22 10:01 TH [id number]) Electric Stimulation Electric Stimulation left posterior knee Comments ESTIM + HEAT PT-OP-T Assessment and Plan Start: 06/02/22 10:36 Freq: Status: Active Protocol: Document 06/16/22 16:20 TH (Rec: 06/16/22 16:27 TH [id number]) Physical Therapy Assessment Goals 3 Impairment Difficulty navigating steps Short Term Goal (STG) Pt will be able to navigate 1 flight of stairs with alternating step pattern and minimal left knee pain. STG Duration 07/14/22 Pharmacist Goal (LTG) Pt will be able to navigate 1 flight of stairs with alternating step pattern and no left knee pain. LTG Duration 08/25/22 2 Impairment left knee rom limited Short Term Goal (STG) Left knee ext/flex will improve to WFL. STG Duration 07/14/22 6 weeks Pharmacist Goal (LTG) Left knee ext/flex will improve to WNL. LTG Duration 08/25/22 12 weeks 1 Impairment Difficult to ambulate with FWB through LLE due to pain. Short Term Goal (STG) Pt will be able to ambulate 50 feet on even terrain with 75 % weight bear through LLE with minimal pain. STG Duration 07/14/22 6 weeks Assisted Goal (LTG) Pt will be able to ambulate 100+ feet on even/uneven terrain with 100 % weight bear through LLE without pain. LTG Duration 08/25/22 12 weeks Assessment Summary Assessment Pt was found to have a complete ACL tear and mild sprain MCL ( see results above in subjective). Pt will likely proceed with surgery though wishes to improve with strength/rom prior to that time. Physical Therapy Plan Frequency and Duration Frequency of Treatment 1-2x/wk Duration of treatment (weeks) 12 Plan of Care Start Date 06/02/22 Plan of Care End Date 08/18/22 Therapeutic Interventions Therapeutic Interventions Balance Training,Coordination Training,Gait Training,Home Exercise Program,Joint Mobilizations,Manual Therapy, Neuromuscular Re-education, Patient/Caregiver Education, Self-Care/Home Management,Soft Tissue Mobilization,Taping, Therapeutic Activities, Therapeutic Exercises Modalities Cold Pack/Ice Massage,Electric Stimulation,Hot Packs, Traction- Mechanical, Ultrasound
--- NOTE | 2022-06-22 12:49 | PT.OTN ---
Current Diagnoses Pain in right knee (06/22/22) Physical Therapy Treatment Note PT-OP-A Visit Information Start: 06/02/22 10:36 Freq: Status: Active Protocol: Document 06/22/22 11:30 NBM (Rec: 06/22/22 12:48 NB [id number]) Out-Patient Physical Therapy Visit Information Visit Information Visit Type Treatment Note Visit Start Time 11:20 Visit Stop Time 12:08 Total Visit Minutes 48 Visit Number 6 Number of PATIENT SERVICES COORDINATOR Visits 1 PT-OP-B Current Condition Start: 06/02/22 10:36 Freq: Status: Active Protocol: Document 06/02/22 10:37 TH (Rec: 06/02/22 12:19 TH [id number]) Current Condition History of Current Condition History of Current Condition see visit note PT-OP-C Subjective Start: 06/02/22 10:36 Freq: Status: Active Protocol: Document 06/22/22 11:30 NBM (Rec: 06/22/22 12:48 NBM [id number]) OP-PT Subjective Patient Comments Patient Comments Pt reports ACL repair with Dr. Daniels scheduled on 07/07/22 and supine L knee flexion range has to be 120 degrees. He states he stopped using the cane 4-5 days ago because he didn't think he needed it, and stopped icing about the same time. He needs to return the cane in a week and wonders if insurance will cover one. The further I bend the more pain I have. It's more of a soreness/tightness/stiffness. PT-OP-E Functional Tests Start: 06/02/22 10:36 Freq: Status: Active Protocol: Document 06/02/22 10:37 TH (Rec: 06/02/22 12:19 TH [id number]) Functional Tests Other Ant/post drawer Comment neg McMurrays Comment neg MCL/LCL stress test Comment neg PT-OP-K Range of Motion Start: 06/02/22 10:36 Freq: Status: Active Protocol: Document 06/09/22 09:12 TH (Rec: 06/09/22 10:01 TH [id number]) Knee Goniometric Range of Motion Knee Left Patient Position Sitting Flexion Active (degrees) 95 Extension Active (degrees) 3 PT-OP-Q Treatments Start: 06/02/22 10:36 Freq: Status: Active Protocol: Document 06/22/22 11:30 NBM (Rec: 06/22/22 12:48 [facility] [id number]) Therapeutic Exercises Other Exercises wall sits Comments 6 x 30 sec holds with hip abduction step ups Other Exercise Name Discussed only - not done today Comments 3 x 10 with hip/knee alignment leg press Comments 35 lb single leg left with hip/knee alignment Resisted hip abd//ext Comments green band 3 x 10 each bilat. heel raises with dumbbells Other Exercise Name heel raises with 25 lb weights Comments vc for slower eccentric terminal knee ext. Comments 2 x 10 5 sec holds (2 breath cycles) recum. bike Comments 10 min level 3 resisted HS Comments 2 x10 pink band knee /hip alignment knee ext., Comments 2 x 10 pink band knee /hip alignment terminal knee extension Comments 1 x 10 hold 5 sec Self-Care/Home Management Treatment Education Patient Education Body Mechanics,Home Exercise Program,Pain Management,Safety Other Education -Encouraged icing more frequently for swelling and pain management; also explained breathwork for pain dampening and improving muscle guarding with movement. Discussed guidelines for activity such as pain increasing >2 levels or soreness more than 24 hrs later after activity is too much. -Encouraged resuming cane use to reduce compensation patterns and decrease weightbearing through L knee. -Educated pt on open versus closed-chain ex's and discouraged open-chain lower extremity ex's such as prone hamstring curls; encouraged closed-chain HEP ex's for improving knee stability. Emailed pt current HEP per his request. PT-OP-R Modalities Start: 06/02/22 10:36 Freq: Status: Active Protocol: Document 06/09/22 09:12 TH (Rec: 06/09/22 10:01 TH [id number]) Electric Stimulation Electric Stimulation left posterior knee Comments ESTIM + HEAT PT-OP-T Assessment and Plan Start: 06/02/22 10:36 Freq: Status: Active Protocol: Document 06/22/22 11:30 NBM (Rec: 06/22/22 12:48 [facility] [id number]) Physical Therapy Assessment Impairments Impairments Balance,Edema,Functional Activities,Functional Mobility ,Gait,Pain,ROM Goals 3 Impairment Difficulty navigating steps Short Term Goal (STG) Pt will be able to navigate 1 flight of stairs with alternating step pattern and minimal left knee pain. STG Duration 5/2/23 Halfway Goal (LTG) Pt will be able to navigate 1 flight of stairs with alternating step pattern and no left knee pain. LTG Duration 08/25/22 2 Impairment left knee rom limited Short Term Goal (STG) Left knee ext/flex will improve to WFL. STG Duration 07/14/22 6 weeks Halfway Goal (LTG) Left knee ext/flex will improve to WNL. LTG Duration 08/25/22 12 weeks 1 Impairment Difficult to ambulate with FWB through LLE due to pain. Short Term Goal (STG) Pt will be able to ambulate 50 feet on even terrain with 75 % weight bear through LLE with minimal pain. STG Duration 07/14/22 6 weeks Halfway Goal (LTG) Pt will be able to ambulate 100+ feet on even/uneven terrain with 100 % weight bear through LLE without pain. LTG Duration 08/25/22 12 weeks Assessment Summary Assessment Pt arrives without Assistive Device and with L knee compression sleeve, and reports increased soreness with L knee flexion. Treatment focus on HEP review and education for closed-chain vs open-chain ex's, pain and swelling management with increased icing frequency and breathwork, and encouragement to resume single point cane use to reduce pain compensation patterns with gait. Supine L knee flexion AROM on shuttle recovery is 110 deg (but pt states it's more challenging in heel slide position). Current HEP emailed to pt per their request. Pt to discuss SPC prescription w/ PT next visit. Ice offered, pt declined and will ice at home. Physical Therapy Plan Frequency and Duration Frequency of Treatment 1-2x/wk Duration of treatment (weeks) 12 Plan of Care Start Date 06/02/22 Plan of Care End Date 08/18/22 Therapeutic Interventions Therapeutic Interventions Balance Training,Coordination Training,Gait Training,Home Exercise Program,Joint Mobilizations,Manual Therapy, Neuromuscular Re-education, Patient/Caregiver Education, Self-Care/Home Management,Soft Tissue Mobilization,Taping, Therapeutic Activities, Therapeutic Exercises Modalities Cold Pack/Ice Massage,Electric Stimulation,Hot Packs, Traction- Mechanical, Ultrasound Next Visit Focus/Plan Next Visit Plan Review HEP and pain/swelling management, measure ROM w/ supine heel slides (pt states to be 120 deg for 07/07/22 AClLrepair). POC: gentle rom /strengthening isometric ex. awaiting mri and results to r/o meniscus/ tendon tear.
--- NOTE | 2022-07-09 17:33 | PT.OTN ---
Current Diagnoses Pain in right knee (07/09/22) Physical Therapy Treatment Note PT-OP-A Visit Information Start: 06/02/22 10:36 Freq: Status: Active Protocol: Document 07/09/22 16:45 DCW (Rec: 07/09/22 17:33 DCW [id number]) Out-Patient Physical Therapy Visit Information Visit Information Visit Type Discharge Summary Visit Start Time 16:45 Visit Stop Time 17:30 Total Visit Minutes 45 Visit Number 7 Number of INGOT BUGGY OPERATOR Visits 0 PT-OP-B Current Condition Start: 06/02/22 10:36 Freq: Status: Active Protocol: Document 06/02/22 10:37 TH (Rec: 06/02/22 12:19 TH [id number]) Current Condition History of Current Condition History of Current Condition see visit note PT-OP-C Subjective Start: 06/02/22 10:36 Freq: Status: Active Protocol: Document 07/09/22 16:45 DCW (Rec: 07/09/22 17:33 DCW [id number]) OP-PT Subjective Patient Comments Patient Comments Swelling only goes down if I stay off it and ice it a lot, which I don't do. PT-OP-E Functional Tests Start: 06/02/22 10:36 Freq: Status: Active Protocol: Document 06/02/22 10:37 TH (Rec: 06/02/22 12:19 TH [id number]) Functional Tests Other Ant/post drawer Comment neg McMurrays Comment neg MCL/LCL stress test Comment neg PT-OP-K Range of Motion Start: 06/02/22 10:36 Freq: Status: Active Protocol: Document 06/09/22 09:12 TH (Rec: 06/09/22 10:01 TH [id number]) Knee Goniometric Range of Motion Knee Left Patient Position Sitting Flexion Active (degrees) 95 Extension Active (degrees) 3 PT-OP-Q Treatments Start: 06/02/22 10:36 Freq: Status: Active Protocol: Document 07/09/22 16:45 DCW (Rec: 07/09/22 17:33 DCW [id number]) Cardio Equipment Recumbent Bicycle Duration (Minutes) 4 Resistance 5 Seat Position 9 Therapeutic Exercises Other Exercises lunge Other Exercise Name BOSU lunge wall sits Comments 3 x 60 sec holds with hip abduction step ups Comments 3 x 10 with hip/knee alignment leg press Comments 37 lb single leg left with hip /knee alignment heel raises with dumbbells Other Exercise Name heel raises Comments vc for slower eccentric Self-Care/Home Management Treatment Education Patient Education Body Mechanics,Home Exercise Program,Joint Protection,Pain Management,Safety PT-OP-R Modalities Start: 06/02/22 10:36 Freq: Status: Active Protocol: Document 06/09/22 09:12 TH (Rec: 06/09/22 10:01 TH [id number]) Electric Stimulation Electric Stimulation left posterior knee Comments ESTIM + HEAT PT-OP-T Assessment and Plan Start: 06/02/22 10:36 Freq: Status: Active Protocol: Document 07/09/22 16:45 DCW (Rec: 07/09/22 17:33 DCW [id number]) Physical Therapy Assessment Impairments Impairments Balance,Edema,Functional Activities,Functional Mobility ,Gait,Pain,ROM Goals 3 Impairment Difficulty navigating steps Short Term Goal (STG) Pt will be able to navigate 1 flight of stairs with alternating step pattern and minimal left knee pain. STG Duration 07/14/22 Mcfp Goal (LTG) Pt will be able to navigate 1 flight of stairs with alternating step pattern and no left knee pain. LTG Duration 08/25/22 2 Impairment left knee rom limited Short Term Goal (STG) Left knee ext/flex will improve to WFL. STG Duration 07/14/22 6 weeks Mcfp Goal (LTG) Left knee ext/flex will improve to WNL. LTG Duration 08/25/22 12 weeks 1 Impairment Difficult to ambulate with FWB through LLE due to pain. Short Term Goal (STG) Pt will be able to ambulate 50 feet on even terrain with 75 % weight bear through LLE with minimal pain. STG Duration 07/14/22 6 weeks Mcfp Goal (LTG) Pt will be able to ambulate 100+ feet on even/uneven terrain with 100 % weight bear through LLE without pain. LTG Duration 08/25/22 12 weeks Assessment Summary Assessment Pt feels comfortable with current HEP, will continue to work on strengthening and remaining active until upcoming surgical ACL repair. Appropriate to discharge at this time until pt is post-op. Physical Therapy Plan Frequency and Duration Frequency of Treatment 1-2x/wk Duration of treatment (weeks) 12 Plan of Care Start Date 06/02/22 Plan of Care End Date 08/18/22 Therapeutic Interventions Therapeutic Interventions Balance Training,Coordination Training,Gait Training,Home Exercise Program,Joint Mobilizations,Manual Therapy, Neuromuscular Re-education, Patient/Caregiver Education, Self-Care/Home Management,Soft Tissue Mobilization,Taping, Therapeutic Activities, Therapeutic Exercises Modalities Cold Pack/Ice Massage,Electric Stimulation,Hot Packs, Traction- Mechanical, Ultrasound Discharge Physical Therapy Discharge Reasons Change in Medical Status Discharge Comments Upcoming ACL repair in 2.5 weeks Next Visit Focus/Plan Next Note Type Discharge Summary
== END 2022-07-10 15:55 | disposition home or self-care (01) ==
LOC: PHYS 16:45
PROVIDERS: Family Provider Student in an Organized Health Care Education/Training Program; PCP Student in an Organized Health Care Education/Training Program; Referring Provider Nurse Practitioner Family; Visit Provider Nurse Practitioner Family
DX: M25.561 Pain in right knee (principal)
CPT/HCPCS: 97014; 97035; 97110; 97140; 97161; 97535; G0283

== ENCOUNTER 2022-07-22 06:33 | Day surgery (SDC) | payer OTHER, SELFPAY ==
[2022-07-20 08:21] VITALS: BMI 30.1
[2022-07-22] VITALS (8 sets, daily range): BP systolic 104–124; BP diastolic 66–73; PULSE 71–82; RESP 10–19; TEMP 36.1–36.3; O2SAT 95–100; BMI 30.1
[2022-07-22] MEDS: LACTATED RINGERS 1,000 ML 42 ML IV ×2 (07:09→09:56)
--- NOTE | 2022-07-22 07:38 | SUR.OPER ---
Supine on padded OR bed, head on pillow, arms secured on padded arm boards at <90 degrees abduction, legs uncrossed, safety belt across abdomen, left lateral arthroscopy leg jordan.
--- NOTE | 2022-07-22 08:23 | SUR.PREOP ---
Block start time 0754 with a time out. Monitoring initiated and maintained throughout procedure. Oxygen and medications given per anesthesiologist instructions. Patient remained stable throughout procedure, no adverse reactions noted. Block end time 0806.
[2022-07-22] MEDS: CEFAZOLIN 2 GM/100 ML PREMIX 100 ML IV (08:28)
[2022-07-22] MEDS: BUPIVACAINE 0.5% (PF) 10 ML VIAL INJ (09:55)
--- NOTE | 2022-07-22 10:05 | P.OP_ITS ---
Operative Date/Time/Diagnoses Date of procedure: 07/22/22 Time of procedure: 10:05 Pre-op diagnosis: Left knee anterior cruciate ligament rupture Post-op diagnosis: same Procedure & Clinicians Procedure: Left anterior cruciate ligament reconstruction with quadriceps autograft Same procedure as scheduled: Yes Indications: The patient is a 42-year-old active gentleman who suffered an ACL rupture. He has indicated a desire to continue activities that would endanger his knee without stability. He is elected to proceed with ACL reconstruction after discussion the risks benefits and alternatives. Risks discussed included but were not limited to: Failure to achieve full activity postoperatively, stiffness, infection, nerve damage, deep venous thrombosis common pulmonary embolism, stroke, myocardial infarction, permanent paralysis and . Surgeon: Stone Daniels Marketing Planning Manager: Srinivasa Wheeler Click Yes if Unassisted: No Anesthesia Type: General, Peripheral nerve block and Local Operative Notes Findings: Complete femoral avulsion of the anterior cruciate ligament with ?empty wall sign?. Normal suprapatellar pouch. Normal patellofemoral joint. Normal medial and lateral gutters. Normal medial compartment. Normal lateral compartment. Closure Type: primary Specimen(s): none sent Prosthetic devices, grafts, tissues, transplants, or devices: Implants used in this procedure were manufactured by the [employer] and included a quad link implant system with a femoral tight rope button, and a 20 mm diameter tight rope metal button for tibial fixation. Applied: implant(s) Estimated Blood Loss (mL): 50 Blood products transfused: none Tourniquet time (min): 57 Procedure in detail: The patient was seen in the preoperative area where he identified his left knee as the operative site this was marked with my initials. He was taken to the operating room after undergoing a femoral nerve block in the preoperative area. He was placed on the operating room table in a supine position and underwent the induction of a general anesthetic. A full procedural pause was performed. He received preoperative antibiotics. A tourniquet was placed about his proximal left thigh. His left leg was examined under anesthesia with findings of a grade 2 Leta's and a grade 2 pivot shift maneuver. Varus valgus and posterior stability was intact. His left leg was prepared from the toes to the tourniquet in the usual fashion with ChloraPrep and draped with sterile drapes. The knee was entered through a superomedial portal with the pump cannula and the knee inflated with arthroscopic fluid. An inferolateral portal was created for the arthroscope and diagnostic arthroscopy performed with the result given above. D uring diagnostic arthroscopy a medial portal was created for the probe and other tools. After confirming there was no meniscal damage requiring repair, the leg was elevated and exsanguinated with an Esmarch bandage and the tourniquet inflated to 250 mmHg. The central 10-11 mm of quadriceps tendon was harvested for a total graft length of 7 cm. This was taken to the back table for preparation into a graft by Mr. Wheeler. The defect in the quadriceps tendon was sewed [id number] with a running 0 Vicryl. The arthroscope was then reinserted into the joint through the lateral portal and the shaver used to debride the remaining ACL scar from the notch. The arthroscope was then moved into the medial portal and the flip cutter guide placed through the lateral portal into the center of the ACL footprint. The flip cutting Reamer was drilled into the center of the footprint and set for 11-1/2 mm and a socket of 30 mm depth created. A passing suture was then placed through this socket and brought out through the lateral portal. The arthroscope was then replaced in the lateral portal and the tibial tunnel drilled in the center of the tibial footprint after a 1.5 cm skin incision was created over the proximal tibia to allow pin placement. The tibial tunnel was drilled at a diameter of 12 mm. The passing suture was then brought out through the tibia and used to deliver the graft thr ough the tunnels and out the femoral cortex. The graft was pulled into the socket and fixated with use of the tight rope device. I pulled firmly on the tibial end of the graft and there was no evidence of failure of fixation. A 20 mm diameter titanium button was then applied under the tight rope fixation device on the tibial side. This was advanced to the cortex and the graft tightened. The knee was examined and found to have a grade 0 Leta's and grade 0 pivot shift. The sutures on both of the tight rope devices were tied to backup fixation. The sutures were cut. The tourniquet was deflated for total tourniquet time of 57 minutes. Hemostasis was obtained with electrocautery. The tibial tunnel wound and the graft harvest wound were closed with subcutaneous 3-0 Vicryl and 4-0 Monocryl subcuticular stitches. All portals were closed with 4-0 Monocryl subcuticularly and with Steri-Strips. Steri- Strips were also applied to the longer wounds. The knee was injected with 20 mL 0.5% Marcaine and 10 mL of the same solution was injected in the subcutaneous tissues for postoperative pain control. Dressings of sterile 4x4s, sterile cast padding and an Uday wrap were applied the patient was transported to the recovery room in good condition having tolerated the procedure well. The services of a skilled agency sales management assistant were necessary in this procedure for holding the camera, positioning the limb, and preparing the graft. Without the services of Mr. Wheeler the procedure could not have gone forward in a safe, expedient fashion. Complications: none Post-operative Condition: stable Disposition: PACU Plan for aftercare: The patient will be discharged today. He will use crutches until he can comfortably weight bear on the left. He will start physical therapy within the next 2 weeks. He will work on gentle range of motion at home until physical therapy is available. A prescription for Percocet has been sent to his pharmacy. He has been instructed in the use of Tylenol for additional pain control and the use of aspirin for DVT prophylaxis.
[2022-07-22] MEDS: OXYCODONE/ACETAMINOPHEN 5/325 TABLET 1 TAB PO ×2 (10:28→10:57)
--- NOTE | 2022-07-22 10:50 | SUR.PHASEI ---
Assumed care. Condition stable.
== END 2022-07-22 11:35 | disposition home or self-care (01) ==
PROVIDERS: Family Provider Student in an Organized Health Care Education/Training Program; PCP Student in an Organized Health Care Education/Training Program; Referring Provider Orthopaedic Surgery; Visit Provider Orthopaedic Surgery
PROC: (CPT 29888; principal; 2022-07-22 07:45)
DX: S83.512A Sprain of anterior cruciate ligament of left knee, initial encounter (principal); G89.18 Other acute postprocedural pain; X50.1XXA Overexertion from prolonged static or awkward postures, initial encounter; Y93.55 Activity, bike riding
CPT/HCPCS: 29888; 64447; J0690; J1100; J1885; J2250; J2405; J2704; J3010

== ENCOUNTER 2022-11-12 16:30 | Outpatient (RCR) | payer OTHER, SELFPAY ==
--- NOTE | 2022-07-22 07:40 | PM.PREOP ---
Pre-operative Note Interval Note History & Physical reviewed/Exam performed by Physician: Yes Changes to H&P: No
--- NOTE | 2022-07-22 10:05 | P.OP_ITS ---
Operative Date/Time/Diagnoses Date of procedure: 07/22/22 Time of procedure: 10:05 Pre-op diagnosis: Left knee anterior cruciate ligament rupture Post-op diagnosis: same Procedure & Clinicians Procedure: Left anterior cruciate ligament reconstruction with quadriceps autograft Same procedure as scheduled: Yes Indications: The patient is a 42-year-old active gentleman who suffered an ACL rupture. He has indicated a desire to continue activities that would endanger his knee without stability. He is elected to proceed with ACL reconstruction after discussion the risks benefits and alternatives. Risks discussed included but were not limited to: Failure to achieve full activity postoperatively, stiffness, infection, nerve damage, deep venous thrombosis common pulmonary embolism, stroke, myocardial infarction, permanent paralysis and . Surgeon: Stone Daniels Welding Lead Burner: Srinivasa Wheeler Click Yes if Unassisted: No Anesthesia Type: General, Peripheral nerve block and Local Operative Notes Findings: Complete femoral avulsion of the anterior cruciate ligament with ?empty wall sign?. Normal suprapatellar pouch. Normal patellofemoral joint. Normal medial and lateral gutters. Normal medial compartment. Normal lateral compartment. Closure Type: primary Specimen(s): none sent Prosthetic devices, grafts, tissues, transplants, or devices: Implants used in this procedure were manufactured by the [employer] and included a quad link implant system with a femoral tight rope button, and a 20 mm diameter tight rope metal button for tibial fixation. Applied: implant(s) Estimated Blood Loss (mL): 50 Blood products transfused: none Tourniquet time (min): 57 Procedure in detail: The patient was seen in the preoperative area where he identified his left knee as the operative site this was marked with my initials. He was taken to the operating room after undergoing a femoral nerve block in the preoperative area. He was placed on the operating room table in a supine position and underwent the induction of a general anesthetic. A full procedural pause was performed. He received preoperative antibiotics. A tourniquet was placed about his proximal left thigh. His left leg was examined under anesthesia with findings of a grade 2 Leta's and a grade 2 pivot shift maneuver. Varus valgus and posterior stability was intact. His left leg was prepared from the toes to the tourniquet in the usual fashion with ChloraPrep and draped with sterile drapes. The knee was entered through a superomedial portal with the pump cannula and the knee inflated with arthroscopic fluid. An inferolateral portal was created for the arthroscope and diagnostic arthroscopy performed with the result given above. D uring diagnostic arthroscopy a medial portal was created for the probe and other tools. After confirming there was no meniscal damage requiring repair, the leg was elevated and exsanguinated with an Esmarch bandage and the tourniquet inflated to 250 mmHg. The central 10-11 mm of quadriceps tendon was harvested for a total graft length of 7 cm. This was taken to the back table for preparation into a graft by Mr. Wheeler. The defect in the quadriceps tendon was sewed [id number] with a running 0 Vicryl. The arthroscope was then reinserted into the joint through the lateral portal and the shaver used to debride the remaining ACL scar from the notch. The arthroscope was then moved into the medial portal and the flip cutter guide placed through the lateral portal into the center of the ACL footprint. The flip cutting Reamer was drilled into the center of the footprint and set for 11-1/2 mm and a socket of 30 mm depth created. A passing suture was then placed through this socket and brought out through the lateral portal. The arthroscope was then replaced in the lateral portal and the tibial tunnel drilled in the center of the tibial footprint after a 1.5 cm skin incision was created over the proximal tibia to allow pin placement. The tibial tunnel was drilled at a diameter of 12 mm. The passing suture was then brought out through the tibia and used to deliver the graft thr ough the tunnels and out the femoral cortex. The graft was pulled into the socket and fixated with use of the tight rope device. I pulled firmly on the tibial end of the graft and there was no evidence of failure of fixation. A 20 mm diameter titanium button was then applied under the tight rope fixation device on the tibial side. This was advanced to the cortex and the graft tightened. The knee was examined and found to have a grade 0 Leta's and grade 0 pivot shift. The sutures on both of the tight rope devices were tied to backup fixation. The sutures were cut. The tourniquet was deflated for total tourniquet time of 57 minutes. Hemostasis was obtained with electrocautery. The tibial tunnel wound and the graft harvest wound were closed with subcutaneous 3-0 Vicryl and 4-0 Monocryl subcuticular stitches. All portals were closed with 4-0 Monocryl subcuticularly and with Steri-Strips. Steri- Strips were also applied to the longer wounds. The knee was injected with 20 mL 0.5% Marcaine and 10 mL of the same solution was injected in the subcutaneous tissues for postoperative pain control. Dressings of sterile 4x4s, sterile cast padding and an Uday wrap were applied the patient was transported to the recovery room in good condition having tolerated the procedure well. The services of a skilled reading assistant were necessary in this procedure for holding the camera, positioning the limb, and preparing the graft. Without the services of Mr. Wheeler the procedure could not have gone forward in a safe, expedient fashion. Complications: none Post-operative Condition: stable Disposition: PACU Plan for aftercare: The patient will be discharged today. He will use crutches until he can comfortably weight bear on the left. He will start physical therapy within the next 2 weeks. He will work on gentle range of motion at home until physical therapy is available. A prescription for Percocet has been sent to his pharmacy. He has been instructed in the use of Tylenol for additional pain control and the use of aspirin for DVT prophylaxis.
--- NOTE | 2022-08-06 15:35 | PT.OIE ---
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 Moderate mixed hyperlipidemia not requiring statin therapy Snoring Past Surgical History (Last Reviewed 03/21/22 @ 19:25 by Ronn Stover DO) Anesthesia Nasal sinus polyp (~2016) No pertinent past surgical history Status post implantation of testicular prosthesis Visit Care Team Role Provider Type Celio Eli MD Family Provider Physician Primary Care Provider Specialty: Internal Medicine Address: [address] [place] [address], [address], [address] Email: [email or web address] Stone Daniels MD Attending Provider Physician Referring Provider Specialty: Orthopedics Orthopedic Surgery Address: [address] [place] [address], [address] Email: [email or web address] Initial Evaluation PT-OP-A Visit Information Start: 08/06/22 17:42 Freq: Status: Active Protocol: Document 08/06/22 15:00 DCW (Rec: 08/06/22 17:52 DC [id number]) Out-Patient Physical Therapy Visit Information Visit Information Visit Type Initial Evaluation Visit Start Time 15:00 Visit Stop Time 15:35 Total Visit Minutes 35 Visit Number 1 Number of GUEST RELATIONS MANAGER Visits 0 Evaluation Information Evaluation Date 08/06/22 PT-OP-B Current Condition Start: 08/06/22 17:42 Freq: Status: Active Protocol: Document 08/06/22 15:00 DCW (Rec: 08/06/22 17:52 DCW [id number]) Current Condition History of Current Condition Onset Date 07/22/22 Current Complaints Knee pain/stiffness, gait difficulty s/p ACL reconstruction History of Current Condition Pt is a 42 year old male presenting 15 days s/p ACL reconstruction using quad autograft. Pt reports he is able to get up and walk using a unilateral axillary crutch, goes into the office and can be up moving around for ~3 hours, but then really just needs to rest/ice to recover, and is really just done for the day. Pt has been anxious to get in and get started, has been worried about overdoing any activities, so he hasn't done much in the way of an HEP . Treatment Goals Patient/Caregiver Goals Return to normal functional activity PT-OP-C Subjective Start: 08/06/22 17:42 Freq: Status: Active Protocol: Document 08/06/22 15:00 DCW (Rec: 08/06/22 17:52 DCW [id number]) OP-PT Subjective Patient Comments Patient Comments I know, all things considered , I could be worse off, but I really want to get this moving along. Patient Reported Progress Improving Patient Questionnaires Lower Extremity Functional Scale LEFS Score 18/80 = 22.5% PT-OP-E Functional Tests Start: 08/06/22 17:42 Freq: Status: Active Protocol: Document 08/06/22 15:00 DCW (Rec: 08/07/22 08:47 DCW [id number]) Functional Tests 2 Minute Walk Test Distance 328 Device Used unilateral axillary crutch Comments 2.73 ft/sec PT-OP-K Range of Motion Start: 08/06/22 17:42 Freq: Status: Active Protocol: Document 08/06/22 15:00 DCW (Rec: 08/07/22 08:47 DCW [id number]) Knee Goniometric Range of Motion Knee Left Knee ROM WFL No Patient Position Supine Flexion Active (degrees) 76 Extension Active (degrees) 4 Comments Active flexion increased to 83 ? in sitting PT-OP-M Strength Start: 08/06/22 17:42 Freq: Status: Active Protocol: Document 08/06/22 15:00 DCW (Rec: 08/07/22 08:47 DCW [id number]) Knee Strength Knee Manual Muscle Testing Left Comments Pt unable to extend leg against gravity, EOB LAQ able to get to 45? PT-OP-Q Treatments Start: 08/06/22 17:42 Freq: Status: Active Protocol: Document 08/06/22 15:00 DCW (Rec: 08/06/22 17:52 [facility] [id number]) Therapeutic Exercises Supine Exercises SAQ Supine Exercise Name SAQ Side left Quad sets Supine Exercise Name Quad set Side left Sitting Exercises Hamstring stretch Sitting Exercise Name HS stretch Side left Marching Sitting Exercise Name Marching Side left Standing Exercises Hamstring curls Standing Exercise Name HS curls Side left PT-OP-T Assessment and Plan Start: 08/06/22 17:42 Freq: Status: Active Protocol: Document 08/06/22 15:00 [facility] (Rec: 08/07/22 09:00 [facility] [id number]) Physical Therapy Assessment Rehab Potential Rehabilitation Potential Good Evaluation Complexity Number of Personal Factors/Comorbidities 1-2 Number of Body Systems Impaired 3 Clinical Presentation at Evaluation Unstable Impairments Impairments Activity Tolerance,Balance, Functional Activities, Functional Mobility,Gait,Pain, ROM,Soft Tissue Mobility, Strength,Tone Goals 3 Impairment supine L knee AROM limited to 4?-76? [facility] Goal (LTG) Pt to improve supine left knee AROM to at least 0?-120? in order to return to prior outdoor recreational activities including mountain biking 2 Impairment Pt ambulates WBAT using unilateral axillary crutch, relies on UE support Diver Tender Goal (LTG) Pt to ambulate 1500' without an assistive device with a gait pattern WNL in order to demonstrate return to prior level of function LTG Duration 11/04/22 1 Impairment Pt does not have an appropriate home exercise program Short Term Goal (STG) Pt to be independent and compliant with an appropriate HEP STG Duration 09/06/22 Assessment Summary Assessment Pt presents as expected 15 days s/p ACL reconstruction with Quad tendon autograft. Pt currently WBAT using unilateral axillary crutch, able to get up and move around for ~3 hours at work before getting tired and needing to stop and rest. Pt started today on quad sets, SAQ, seated marching, HS stretch, and hamstring curls to work on ROM and overall strength. Pt experiencing minimal pain at this time, mostly stiffness and weakness. Pt anxious to return to prior level of function. Plan to progress weight bearing, focus on improving ROM and gentle quad strengthening and hip strengthening per post-op protocol prior to progressing to more aggressive therapy as pt heals. Physical Therapy Plan Frequency and Duration Frequency of Treatment 2x/Week Plan of Care Start Date 08/06/22 Plan of Care End Date 11/04/22 Therapeutic Interventions Therapeutic Interventions Balance Training,Gait Training ,Home Exercise Program,Joint Mobilizations,Manual Therapy, Neuromuscular Re-education, Patient/Caregiver Education, Self-Care/Home Management,Soft Tissue Mobilization,Taping, Therapeutic Activities, Therapeutic Exercises Modalities Cold Pack/Ice Massage,Electric Stimulation,Hot Packs, Ultrasound Next Visit Focus/Plan Next Note Type Treatment Note Next Visit Plan ROM, gentle strengthening, gait training to reduce reliance on crutch
--- NOTE | 2022-08-06 15:35 | PT.OPPOC ---
Physical, Occupational & Speech Therapy At [facility] Current Diagnoses Pain in left knee (08/06/22) Stiffness of left knee, not elsewhere classified (08/06/22) Other abnormalities of gait and mobility (08/06/22) Sprain of anterior cruciate ligament of left knee, initial encounter (08/06/22) Sprain of anterior cruciate ligament of left knee, subsequent encounter (08/06/22) Visit Care Team Role Provider Type Celio Eli MD Family Provider Physician Primary Care Provider Specialty: Internal Medicine Address: [address] [place] [address], [facility] [address], [address] Email: [email or web address] Stone Daniels MD Attending Provider Physician Referring Provider Specialty: Orthopedics Orthopedic Surgery Address: [address] [place] [address], [address] Email: [email or web address] Plan Of Care PT-OP-T Assessment and Plan Start: 08/06/22 17:42 Freq: Status: Active Protocol: Document 08/06/22 15:00 DCW (Rec: 08/07/22 09:00 DCW [id number]) Physical Therapy Assessment Rehab Potential Rehabilitation Potential Good Evaluation Complexity Number of Personal Factors/Comorbidities 1-2 Number of Body Systems Impaired 3 Clinical Presentation at Evaluation Unstable Impairments Impairments Activity Tolerance,Balance, Functional Activities, Functional Mobility,Gait,Pain, ROM,Soft Tissue Mobility, Strength,Tone Goals 3 Impairment supine L knee AROM limited to 4?-76? Mail Technician Goal (LTG) Pt to improve supine left knee AROM to at least 0?-120? in order to return to prior outdoor recreational activities including mountain biking 2 Impairment Pt ambulates WBAT using unilateral axillary crutch, relies on UE support Alf Goal (LTG) Pt to ambulate 1500' without an assistive device with a gait pattern WNL in order to demonstrate return to prior level of function LTG Duration 11/04/22 1 Impairment Pt does not have an appropriate home exercise program Short Term Goal (STG) Pt to be independent and compliant with an appropriate HEP STG Duration 09/06/22 Assessment Summary Assessment Pt presents as expected 15 days s/p ACL reconstruction with Quad tendon autograft. Pt currently WBAT using unilateral axillary crutch, able to get up and move around for ~3 hours at work before getting tired and needing to stop and rest. Pt started today on quad sets, SAQ, seated marching, HS stretch, and hamstring curls to work on ROM and overall strength. Pt experiencing minimal pain at this time, mostly stiffness and weakness. Pt anxious to return to prior level of function. Plan to progress weight bearing, focus on improving ROM and gentle quad strengthening and hip strengthening per post-op protocol prior to progressing to more aggressive therapy as pt heals. Physical Therapy Plan Frequency and Duration Frequency of Treatment 2x/Week Plan of Care Start Date 08/06/22 Plan of Care End Date 11/04/22 Therapeutic Interventions Therapeutic Interventions Balance Training,Gait Training ,Home Exercise Program,Joint Mobilizations,Manual Therapy, Neuromuscular Re-education, Patient/Caregiver Education, Self-Care/Home Management,Soft Tissue Mobilization,Taping, Therapeutic Activities, Therapeutic Exercises Modalities Cold Pack/Ice Massage,Electric Stimulation,Hot Packs, Ultrasound Next Visit Focus/Plan Next Note Type Treatment Note Next Visit Plan ROM, gentle strengthening, gait training to reduce reliance on crutch Plan of Care Dates Plan of Care Start Date 08/06/22 Plan of Care End Date 11/04/22 Electronically Signed by: Brent Pina, PT 08/07/22 0900 If you are in agreement with this Plan of Care, please return a signed and dated copy. I have reviewed this Plan of Care and certify that the skilled therapy services above are required to meet the patient?s needs. Physician Signature Date Printed Name and Credentials Clinical Instructor Signature Printed Name and Credentials
--- NOTE | 2022-08-11 17:30 | PT.OTN ---
Current Diagnoses Pain in left knee (08/11/22) Stiffness of left knee, not elsewhere classified (08/11/22) Other abnormalities of gait and mobility (08/11/22) Sprain of anterior cruciate ligament of left knee, initial encounter (08/11/22) Sprain of anterior cruciate ligament of left knee, subsequent encounter (08/11/22) Physical Therapy Treatment Note PT-OP-A Visit Information Start: 08/06/22 17:42 Freq: Status: Active Protocol: Document 08/11/22 16:33 DCW (Rec: 08/11/22 17:30 DCW [id number]) Out-Patient Physical Therapy Visit Information Visit Information Visit Type Treatment Note Visit Start Time 16:33 Visit Stop Time 17:15 Total Visit Minutes 42 Visit Number 2 Number of RESEARCH AND INSIGHTS EXECUTIVE Visits 0 Evaluation Information Evaluation Date 08/06/22 PT-OP-B Current Condition Start: 08/06/22 17:42 Freq: Status: Active Protocol: Document 08/06/22 15:00 DCW (Rec: 08/06/22 17:52 DCW [id number]) Current Condition History of Current Condition Onset Date 07/22/22 Current Complaints Knee pain/stiffness, gait difficulty s/p ACL reconstruction History of Current Condition Pt is a 42 year old male presenting 15 days s/p ACL reconstruction using quad autograft. Pt reports he is able to get up and walk using a unilateral axillary crutch, goes into the office and can be up moving around for ~3 hours, but then really just needs to rest/ice to recover, and is really just done for the day. Pt has been anxious to get in and get started, has been worried about overdoing any activities, so he hasn't done much in the way of an HEP . Treatment Goals Patient/Caregiver Goals Return to normal functional activity PT-OP-C Subjective Start: 08/06/22 17:42 Freq: Status: Active Protocol: Document 08/11/22 16:33 DCW (Rec: 08/11/22 17:30 DCW [id number]) OP-PT Subjective Patient Comments Patient Comments Pt has transitioned to a [facility], feels a little more independent with his ambulation PT-OP-E Functional Tests Start: 08/06/22 17:42 Freq: Status: Active Protocol: Document 08/06/22 15:00 DCW (Rec: 08/07/22 08:47 DCW [id number]) Functional Tests 2 Minute Walk Test Distance 328 Device Used unilateral axillary crutch Comments 2.73 ft/sec PT-OP-K Range of Motion Start: 08/06/22 17:42 Freq: Status: Active Protocol: Document 08/06/22 15:00 DCW (Rec: 08/07/22 08:47 DCW [id number]) Knee Goniometric Range of Motion Knee Left Knee ROM WFL No Patient Position Supine Flexion Active (degrees) 76 Extension Active (degrees) 4 Comments Active flexion increased to 83 ? in sitting PT-OP-M Strength Start: 08/06/22 17:42 Freq: Status: Active Protocol: Document 08/06/22 15:00 DCW (Rec: 08/07/22 08:47 DCW [id number]) Knee Strength Knee Manual Muscle Testing Left Comments Pt unable to extend leg against gravity, EOB LAQ able to get to 45? PT-OP-Q Treatments Start: 08/06/22 17:42 Freq: Status: Active Protocol: Document 08/11/22 16:33 DCW (Rec: 08/11/22 17:30 DCW [id number]) Therapeutic Exercises Supine Exercises Hip Abduction Supine Exercise Name Windshield Wipers Side left Heel slide Supine Exercise Name Heel slides Side left SAQ Supine Exercise Name SAQ Side left Prone Exercises Prone Hang Prone Exercise Name Prone Hang Side left Reps/Minutes 4 minutes Sitting Exercises Heel slides Sitting Exercise Name Seated heelslides - AAROM Hamstring stretch Sitting Exercise Name HS stretch Side left Marching Sitting Exercise Name Standing - Marching Side left Standing Exercises Hamstring curls Standing Exercise Name HS curls Side left PT-OP-T Assessment and Plan Start: 08/06/22 17:42 Freq: Status: Active Protocol: Document 08/11/22 16:33 DCW (Rec: 08/11/22 17:30 DCW [id number]) Physical Therapy Assessment Impairments Impairments Activity Tolerance,Balance, Functional Activities, Functional Mobility,Gait,Pain, ROM,Soft Tissue Mobility, Strength,Tone Goals 3 Impairment supine L knee AROM limited to 4?-76? Retail Link Analyst Goal (LTG) Pt to improve supine left knee AROM to at least 0?-120? in order to return to prior outdoor recreational activities including mountain biking LTG Duration 11/04/22 2 Impairment Pt ambulates WBAT using unilateral axillary crutch, relies on UE support Skilled Nursing Goal (LTG) Pt to ambulate 1500' without an assistive device with a gait pattern WNL in order to demonstrate return to prior level of function LTG Duration 11/04/22 1 Impairment Pt does not have an appropriate home exercise program Short Term Goal (STG) Pt to be independent and compliant with an appropriate HEP STG Duration 09/06/22 Assessment Summary Assessment Pt has been doing well with his HEP, slight limp when not using SPC, but looks good with assistive device. Slight improvements in AROM, obvious weakness in quad/knee extension with SAQ. Physical Therapy Plan Frequency and Duration Frequency of Treatment 2x/Week Plan of Care Start Date 08/06/22 Plan of Care End Date 11/04/22 Therapeutic Interventions Therapeutic Interventions Balance Training,Gait Training ,Home Exercise Program,Joint Mobilizations,Manual Therapy, Neuromuscular Re-education, Patient/Caregiver Education, Self-Care/Home Management,Soft Tissue Mobilization,Taping, Therapeutic Activities, Therapeutic Exercises Modalities Cold Pack/Ice Massage,Electric Stimulation,Hot Packs, Ultrasound Next Visit Focus/Plan Next Note Type Treatment Note Next Visit Plan ROM, gentle strengthening, gait training to reduce reliance on crutch
--- NOTE | 2022-08-14 16:44 | PT.OTN ---
Current Diagnoses Pain in left knee (08/14/22) Stiffness of left knee, not elsewhere classified (08/14/22) Other abnormalities of gait and mobility (08/14/22) Sprain of anterior cruciate ligament of left knee, initial encounter (08/14/22) Sprain of anterior cruciate ligament of left knee, subsequent encounter (08/14/22) Physical Therapy Treatment Note PT-OP-A Visit Information Start: 08/06/22 17:42 Freq: Status: Active Protocol: Document 08/14/22 16:00 DCW (Rec: 08/14/22 16:44 DCW [id number]) Out-Patient Physical Therapy Visit Information Visit Information Visit Type Treatment Note Visit Start Time 16:00 Visit Stop Time 16:45 Total Visit Minutes 45 Visit Number 3 Number of SUPERVISOR JOINERS Visits 0 Evaluation Information Evaluation Date 08/06/22 PT-OP-B Current Condition Start: 08/06/22 17:42 Freq: Status: Active Protocol: Document 08/06/22 15:00 DCW (Rec: 08/06/22 17:52 DCW [id number]) Current Condition History of Current Condition Onset Date 07/22/22 Current Complaints Knee pain/stiffness, gait difficulty s/p ACL reconstruction History of Current Condition Pt is a 42 year old male presenting 15 days s/p ACL reconstruction using quad autograft. Pt reports he is able to get up and walk using a unilateral axillary crutch, goes into the office and can be up moving around for ~3 hours, but then really just needs to rest/ice to recover, and is really just done for the day. Pt has been anxious to get in and get started, has been worried about overdoing any activities, so he hasn't done much in the way of an HEP . Treatment Goals Patient/Caregiver Goals Return to normal functional activity PT-OP-C Subjective Start: 08/06/22 17:42 Freq: Status: Active Protocol: Document 08/14/22 16:00 DCW (Rec: 08/14/22 16:44 DCW [id number]) OP-PT Subjective Patient Comments Patient Comments I did a lot Wednesday evening. Tried to go for a longer walk, it was mostly downhill. It didn't feel great. PT-OP-E Functional Tests Start: 08/06/22 17:42 Freq: Status: Active Protocol: Document 08/06/22 15:00 DCW (Rec: 08/07/22 08:47 DCW [id number]) Functional Tests 2 Minute Walk Test Distance 328 Device Used unilateral axillary crutch Comments 2.73 ft/sec PT-OP-K Range of Motion Start: 08/06/22 17:42 Freq: Status: Active Protocol: Document 08/06/22 15:00 DCW (Rec: 08/07/22 08:47 DCW [id number]) Knee Goniometric Range of Motion Knee Left Knee ROM WFL No Patient Position Supine Flexion Active (degrees) 76 Extension Active (degrees) 4 Comments Active flexion increased to 83 ? in sitting PT-OP-M Strength Start: 08/06/22 17:42 Freq: Status: Active Protocol: Document 08/06/22 15:00 DCW (Rec: 08/07/22 08:47 DCW [id number]) Knee Strength Knee Manual Muscle Testing Left Comments Pt unable to extend leg against gravity, EOB LAQ able to get to 45? PT-OP-Q Treatments Start: 08/06/22 17:42 Freq: Status: Active Protocol: Document 08/14/22 16:00 DCW (Rec: 08/14/22 16:44 DCW [id number]) Therapeutic Exercises Supine Exercises SLR Supine Exercise Name SLR Side left Reps/Minutes x4 Hip Abduction Supine Exercise Name Windshield Wipers Side left Heel slide Supine Exercise Name Heel slides Side left SAQ Supine Exercise Name SAQ Side left Prone Exercises Prone Hang Prone Exercise Name Prone Hang Side left Reps/Minutes 4 minutes Standing Exercises SLS Standing Exercise Name SLS /c UE support Side left Heel Raises Standing Exercise Name PF on JOSE Side bilateral Calf Stretch Standing Exercise Name JOSE Side bilateral Hamstring curls Standing Exercise Name HS curls Side left PT-OP-T Assessment and Plan Start: 08/06/22 17:42 Freq: Status: Active Protocol: Document 08/14/22 16:00 DCW (Rec: 08/14/22 16:44 DCW [id number]) Physical Therapy Assessment Impairments Impairments Activity Tolerance,Balance, Functional Activities, Functional Mobility,Gait,Pain, ROM,Soft Tissue Mobility, Strength,Tone Goals 3 Impairment supine L knee AROM limited to 4?-76? Mcfp Goal (LTG) Pt to improve supine left knee AROM to at least 0?-120? in order to return to prior outdoor recreational activities including mountain biking LTG Duration 11/04/22 2 Impairment Pt ambulates WBAT using unilateral axillary crutch, relies on UE support Dovetail Machine Operator Goal (LTG) Pt to ambulate 1500' without an assistive device with a gait pattern WNL in order to demonstrate return to prior level of function LTG Duration 11/04/22 1 Impairment Pt does not have an appropriate home exercise program Short Term Goal (STG) Pt to be independent and compliant with an appropriate HEP STG Duration 09/06/22 Assessment Summary Assessment Pt showing good improvements in most areas, much better ambulation with both SPC and AD-free. Significant improvement with prone hang, still demonstrating slight extension lag. Physical Therapy Plan Frequency and Duration Frequency of Treatment 2x/Week Plan of Care Start Date 08/06/22 Plan of Care End Date 11/04/22 Therapeutic Interventions Therapeutic Interventions Balance Training,Gait Training ,Home Exercise Program,Joint Mobilizations,Manual Therapy, Neuromuscular Re-education, Patient/Caregiver Education, Self-Care/Home Management,Soft Tissue Mobilization,Taping, Therapeutic Activities, Therapeutic Exercises Modalities Cold Pack/Ice Massage,Electric Stimulation,Hot Packs, Ultrasound Next Visit Focus/Plan Next Note Type Treatment Note Next Visit Plan ROM, gentle strengthening, gait training to reduce reliance on crutch
--- NOTE | 2022-08-18 16:30 | PT.OTN ---
Current Diagnoses Pain in left knee (08/18/22) Stiffness of left knee, not elsewhere classified (08/18/22) Other abnormalities of gait and mobility (08/18/22) Sprain of anterior cruciate ligament of left knee, initial encounter (08/18/22) Sprain of anterior cruciate ligament of left knee, subsequent encounter (08/18/22) Physical Therapy Treatment Note PT-OP-A Visit Information Start: 08/06/22 17:42 Freq: Status: Active Protocol: Document 08/18/22 15:45 DCW (Rec: 08/18/22 16:30 DCW [id number]) Out-Patient Physical Therapy Visit Information Visit Information Visit Type Treatment Note Visit Start Time 15:45 Visit Stop Time 16:30 Total Visit Minutes 45 Visit Number 4 Number of CHIEF OPERATOR Visits 0 Evaluation Information Evaluation Date 08/06/22 PT-OP-B Current Condition Start: 08/06/22 17:42 Freq: Status: Active Protocol: Document 08/06/22 15:00 DCW (Rec: 08/06/22 17:52 DCW [id number]) Current Condition History of Current Condition Onset Date 07/22/22 Current Complaints Knee pain/stiffness, gait difficulty s/p ACL reconstruction History of Current Condition Pt is a 42 year old male presenting 15 days s/p ACL reconstruction using quad autograft. Pt reports he is able to get up and walk using a unilateral axillary crutch, goes into the office and can be up moving around for ~3 hours, but then really just needs to rest/ice to recover, and is really just done for the day. Pt has been anxious to get in and get started, has been worried about overdoing any activities, so he hasn't done much in the way of an HEP . Treatment Goals Patient/Caregiver Goals Return to normal functional activity PT-OP-C Subjective Start: 08/06/22 17:42 Freq: Status: Active Protocol: Document 08/18/22 15:45 DCW (Rec: 08/18/22 16:30 DCW [id number]) OP-PT Subjective Patient Comments Patient Comments I've basically completely ditched the cane, it's still pretty swollen after today. PT-OP-E Functional Tests Start: 08/06/22 17:42 Freq: Status: Active Protocol: Document 08/06/22 15:00 DCW (Rec: 08/07/22 08:47 DCW [id number]) Functional Tests 2 Minute Walk Test Distance 328 Device Used unilateral axillary crutch Comments 2.73 ft/sec PT-OP-K Range of Motion Start: 08/06/22 17:42 Freq: Status: Active Protocol: Document 08/06/22 15:00 DCW (Rec: 08/07/22 08:47 DCW [id number]) Knee Goniometric Range of Motion Knee Left Knee ROM WFL No Patient Position Supine Flexion Active (degrees) 76 Extension Active (degrees) 4 Comments Active flexion increased to 83 ? in sitting PT-OP-M Strength Start: 08/06/22 17:42 Freq: Status: Active Protocol: Document 08/06/22 15:00 DCW (Rec: 08/07/22 08:47 DCW [id number]) Knee Strength Knee Manual Muscle Testing Left Comments Pt unable to extend leg against gravity, EOB LAQ able to get to 45? PT-OP-Q Treatments Start: 08/06/22 17:42 Freq: Status: Active Protocol: Document 08/18/22 15:45 DCW (Rec: 08/18/22 16:30 DCW [id number]) Cardio Equipment Recumbent Bicycle Duration (Minutes) 6 Resistance 0 Seat Position 8 Other Partial rotations->full rotations Therapeutic Exercises Supine Exercises SLR Supine Exercise Name SLR Side left Reps/Minutes x10 Comments no extension lag Heel slide Supine Exercise Name Wall heel slides Side left Prone Exercises Prone Hang Prone Exercise Name Prone Hang Side bilateral Reps/Minutes 4 minutes Sidelying Exercises Reverse Clamshell Sidelying Exercise Name Reverse Clamshell Side left Clamshell Sidelying Exercise Name Clamshell Side left Sitting Exercises LAQ Sitting Exercise Name LAQ Side left Standing Exercises Step-ups Standing Exercise Name Step-ups Side left Equipment Used 6 step PT-OP-T Assessment and Plan Start: 08/06/22 17:42 Freq: Status: Active Protocol: Document 08/18/22 15:45 DCW (Rec: 08/18/22 16:30 DCW [id number]) Physical Therapy Assessment Impairments Impairments Activity Tolerance,Balance, Functional Activities, Functional Mobility,Gait,Pain, ROM,Soft Tissue Mobility, Strength,Tone Goals 3 Impairment supine L knee AROM limited to 4?-76? Economics Professor Goal (LTG) Pt to improve supine left knee AROM to at least 0?-120? in order to return to prior outdoor recreational activities including mountain biking LTG Duration 11/04/22 2 Impairment Pt ambulates WBAT using unilateral axillary crutch, relies on UE support Economics Professor Goal (LTG) Pt to ambulate 1500' without an assistive device with a gait pattern WNL in order to demonstrate return to prior level of function LTG Duration 11/04/22 1 Impairment Pt does not have an appropriate home exercise program Short Term Goal (STG) Pt to be independent and compliant with an appropriate HEP STG Duration 09/06/22 Assessment Summary Assessment Pt has met criteria (full extension, SLR hold 5 with no extension lag, AD-free ambulation) to move to phase three. Working on increased focus now on flexion, addition of recumbent bicycle, wall heel slides, and clamshells Physical Therapy Plan Frequency and Duration Frequency of Treatment 2x/Week Plan of Care Start Date 08/06/22 Plan of Care End Date 11/04/22 Therapeutic Interventions Therapeutic Interventions Balance Training,Gait Training ,Home Exercise Program,Joint Mobilizations,Manual Therapy, Neuromuscular Re-education, Patient/Caregiver Education, Self-Care/Home Management,Soft Tissue Mobilization,Taping, Therapeutic Activities, Therapeutic Exercises Modalities Cold Pack/Ice Massage,Electric Stimulation,Hot Packs, Ultrasound Next Visit Focus/Plan Next Note Type Treatment Note Next Visit Plan ROM, gentle strengthening, gait training to reduce reliance on crutch
--- NOTE | 2022-08-21 16:00 | PT.OTN ---
Current Diagnoses Pain in left knee (08/21/22) Stiffness of left knee, not elsewhere classified (08/21/22) Other abnormalities of gait and mobility (08/21/22) Sprain of anterior cruciate ligament of left knee, initial encounter (08/21/22) Sprain of anterior cruciate ligament of left knee, subsequent encounter (08/21/22) Physical Therapy Treatment Note PT-OP-A Visit Information Start: 08/06/22 17:42 Freq: Status: Active Protocol: Document 08/21/22 15:25 DCW (Rec: 08/21/22 16:00 DCW [id number]) Out-Patient Physical Therapy Visit Information Visit Information Visit Type Treatment Note Visit Note 10 minutes late Visit Start Time 15:25 Visit Stop Time 16:00 Total Visit Minutes 35 Visit Number 5 Number of CAMPUS RECRUITING COORDINATOR Visits 0 Evaluation Information Evaluation Date 08/06/22 PT-OP-B Current Condition Start: 08/06/22 17:42 Freq: Status: Active Protocol: Document 08/06/22 15:00 DCW (Rec: 08/06/22 17:52 DCW [id number]) Current Condition History of Current Condition Onset Date 07/22/22 Current Complaints Knee pain/stiffness, gait difficulty s/p ACL reconstruction History of Current Condition Pt is a 42 year old male presenting 15 days s/p ACL reconstruction using quad autograft. Pt reports he is able to get up and walk using a unilateral axillary crutch, goes into the office and can be up moving around for ~3 hours, but then really just needs to rest/ice to recover, and is really just done for the day. Pt has been anxious to get in and get started, has been worried about overdoing any activities, so he hasn't done much in the way of an HEP . Treatment Goals Patient/Caregiver Goals Return to normal functional activity PT-OP-C Subjective Start: 08/06/22 17:42 Freq: Status: Active Protocol: Document 08/21/22 15:25 DCW (Rec: 08/21/22 16:00 DCW [id number]) OP-PT Subjective Patient Comments Patient Comments It's been a lot more sore the past few days. PT-OP-E Functional Tests Start: 08/06/22 17:42 Freq: Status: Active Protocol: Document 08/06/22 15:00 DCW (Rec: 08/07/22 08:47 DCW [id number]) Functional Tests 2 Minute Walk Test Distance 328 Device Used unilateral axillary crutch Comments 2.73 ft/sec PT-OP-K Range of Motion Start: 08/06/22 17:42 Freq: Status: Active Protocol: Document 08/06/22 15:00 DCW (Rec: 08/07/22 08:47 DCW [id number]) Knee Goniometric Range of Motion Knee Left Knee ROM WFL No Patient Position Supine Flexion Active (degrees) 76 Extension Active (degrees) 4 Comments Active flexion increased to 83 ? in sitting PT-OP-M Strength Start: 08/06/22 17:42 Freq: Status: Active Protocol: Document 08/06/22 15:00 DCW (Rec: 08/07/22 08:47 DCW [id number]) Knee Strength Knee Manual Muscle Testing Left Comments Pt unable to extend leg against gravity, EOB LAQ able to get to 45? PT-OP-Q Treatments Start: 08/06/22 17:42 Freq: Status: Active Protocol: Document 08/21/22 15:25 DCW (Rec: 08/21/22 16:00 DCW [id number]) Cardio Equipment Recumbent Bicycle Duration (Minutes) 6 Resistance 0->3 Seat Position 9->8 Other full rotations Therapeutic Exercises Supine Exercises Heel slide Supine Exercise Name Wall heel slides Side left Prone Exercises Prone Hang Prone Exercise Name Prone Hang Side bilateral Reps/Minutes 4 minutes Standing Exercises Step-ups Standing Exercise Name Step-ups/downs Side left Equipment Used 6 step Heel Raises Standing Exercise Name PF on JOSE Side bilateral Calf Stretch Standing Exercise Name JOSE Side bilateral Hamstring curls Standing Exercise Name HS curls Side left PT-OP-T Assessment and Plan Start: 08/06/22 17:42 Freq: Status: Active Protocol: Document 08/21/22 15:25 DCW (Rec: 08/21/22 16:00 DCW [id number]) Physical Therapy Assessment Impairments Impairments Activity Tolerance,Balance, Functional Activities, Functional Mobility,Gait,Pain, ROM,Soft Tissue Mobility, Strength,Tone Goals 3 Impairment supine L knee AROM limited to 4?-76? Maintenance Scheduler Goal (LTG) Pt to improve supine left knee AROM to at least 0?-120? in order to return to prior outdoor recreational activities including mountain biking LTG Duration 11/04/22 2 Impairment Pt ambulates WBAT using unilateral axillary crutch, relies on UE support Maintenance Scheduler Goal (LTG) Pt to ambulate 1500' without an assistive device with a gait pattern WNL in order to demonstrate return to prior level of function LTG Duration 11/04/22 1 Impairment Pt does not have an appropriate home exercise program Short Term Goal (STG) Pt to be independent and compliant with an appropriate HEP STG Duration 09/06/22 Assessment Summary Assessment Pt showing increased ROM, current PROM measures 0?-116?. Tolerates treatment well, shows good self-regulation when pushing it a bit too far. Physical Therapy Plan Frequency and Duration Frequency of Treatment 2x/Week Plan of Care Start Date 08/06/22 Plan of Care End Date 11/04/22 Therapeutic Interventions Therapeutic Interventions Balance Training,Gait Training ,Home Exercise Program,Joint Mobilizations,Manual Therapy, Neuromuscular Re-education, Patient/Caregiver Education, Self-Care/Home Management,Soft Tissue Mobilization,Taping, Therapeutic Activities, Therapeutic Exercises Modalities Cold Pack/Ice Massage,Electric Stimulation,Hot Packs, Ultrasound Next Visit Focus/Plan Next Note Type Treatment Note Next Visit Plan ROM, gentle strengthening, gait training to reduce reliance on crutch
--- NOTE | 2022-08-26 09:00 | PT.OTN ---
Current Diagnoses Pain in left knee (08/26/22) Stiffness of left knee, not elsewhere classified (08/26/22) Other abnormalities of gait and mobility (08/26/22) Sprain of anterior cruciate ligament of left knee, initial encounter (08/26/22) Sprain of anterior cruciate ligament of left knee, subsequent encounter (08/26/22) Physical Therapy Treatment Note PT-OP-A Visit Information Start: 08/06/22 17:42 Freq: Status: Active Protocol: Document 08/26/22 08:25 SP (Rec: 08/26/22 09:11 SP [id number]) Out-Patient Physical Therapy Visit Information Visit Information Visit Type Treatment Note Visit Note 10 min late Visit Start Time 08:25 Visit Stop Time 09:00 Total Visit Minutes 35 Visit Number 6 Number of HAT RENOVATOR Visits 1 Evaluation Information Evaluation Date 08/06/22 Precautions Precautions DOS: 07/13/22 PT-OP-B Current Condition Start: 08/06/22 17:42 Freq: Status: Active Protocol: Document 08/06/22 15:00 DCW (Rec: 08/06/22 17:52 DCW [id number]) Current Condition History of Current Condition Onset Date 07/22/22 Current Complaints Knee pain/stiffness, gait difficulty s/p ACL reconstruction History of Current Condition Pt is a 42 year old male presenting 15 days s/p ACL reconstruction using quad autograft. Pt reports he is able to get up and walk using a unilateral axillary crutch, goes into the office and can be up moving around for ~3 hours, but then really just needs to rest/ice to recover, and is really just done for the day. Pt has been anxious to get in and get started, has been worried about overdoing any activities, so he hasn't done much in the way of an HEP . Treatment Goals Patient/Caregiver Goals Return to normal functional activity PT-OP-C Subjective Start: 08/06/22 17:42 Freq: Status: Active Protocol: Document 08/26/22 08:25 SP (Rec: 08/26/22 09:11 SP [id number]) OP-PT Subjective Patient Comments Patient Comments Pt is 5 weeks s/p ACL surgery. reports was difficult coming to standing from bench at [employer]. He is wearing a compression sleeve on L knee today and believes helps with the swelling. He saw ortho yesterday and pleased with progress making but pt reports still hurts with knee extension. PT-OP-E Functional Tests Start: 08/06/22 17:42 Freq: Status: Active Protocol: Document 08/06/22 15:00 DCW (Rec: 08/07/22 08:47 DCW [id number]) Functional Tests 2 Minute Walk Test Distance 328 Device Used unilateral axillary crutch Comments 2.73 ft/sec PT-OP-K Range of Motion Start: 08/06/22 17:42 Freq: Status: Active Protocol: Document 08/06/22 15:00 DCW (Rec: 08/07/22 08:47 DCW [id number]) Knee Goniometric Range of Motion Knee Left Knee ROM WFL No Patient Position Supine Flexion Active (degrees) 76 Extension Active (degrees) 4 Comments Active flexion increased to 83 ? in sitting PT-OP-M Strength Start: 08/06/22 17:42 Freq: Status: Active Protocol: Document 08/06/22 15:00 DCW (Rec: 08/07/22 08:47 DCW [id number]) Knee Strength Knee Manual Muscle Testing Left Comments Pt unable to extend leg against gravity, EOB LAQ able to get to 45? PT-OP-Q Treatments Start: 08/06/22 17:42 Freq: Status: Active Protocol: Document 08/26/22 08:25 SP (Rec: 08/26/22 09:11 SP [id number]) Cardio Equipment Recumbent Bicycle Duration (Minutes) 6 Resistance 4 Seat Position 8>7>6 Other full rotations, 2.32 miles Therapeutic Exercises Supine Exercises Heel slide Supine Exercise Name Wall heel slides Side left Equipment Used supine floor, LLE on doorja- Home assimulate Reps/Minutes 2 min Comments 112 AROM, 116 deg AAROM Prone Exercises L knee flexion Prone Exercise Name AAROM w/ strap<> slow eccentric extension Side left Reps/Minutes 3 min Comments 118 deg Standing Exercises resisted stepping Standing Exercise Name lateral, f/b- added to HEP Resistance RTB, TB #3 loop upper russell Reps/Minutes 20 ft x 2 laps each direction Comments cued knees over ankles, little bigger normal step length, trail LE clear. Step-ups Standing Exercise Name Step ups repeated Side left Equipment Used 6 step, rail as needed Reps/Minutes 2x10 Comments challenged eccentric down, little discomfort lateral knee Heel Raises Standing Exercise Name PF Side bilateral Equipment Used bottom 6 step, rail light contact Reps/Minutes 2x10 Comments good feedback PT-OP-T Assessment and Plan Start: 08/06/22 17:42 Freq: Status: Active Protocol: Document 08/26/22 08:25 SP (Rec: 08/26/22 09:11 SP [id number]) Physical Therapy Assessment Goals 3 Impairment supine L knee AROM limited to 4?-76? Impairment Difficulty navigating steps Slot Machine Mechanic Goal (LTG) Pt to improve supine left knee AROM to at least 0?-120? in order to return to prior outdoor recreational activities including mountain biking LTG Duration 11/04/22 2 Impairment Pt ambulates WBAT using unilateral axillary crutch, relies on UE support Impairment left knee rom limited Slot Machine Mechanic Goal (LTG) Pt to ambulate 1500' without an assistive device with a gait pattern WNL in order to demonstrate return to prior level of function LTG Duration 11/04/22 1 Impairment Pt does not have an appropriate home exercise program Impairment Difficult to ambulate with FWB through LLE due to pain. Short Term Goal (STG) Pt to be independent and compliant with an appropriate HEP STG Duration 09/06/22 Assessment Summary Assessment Pt improved PROM self use strap prone 118 deg. Pt tolerated ther ex well, reports less knee pressure discomfort wtih cues for glut drive during step ups and good muscle effort initiated band walk today, painfree with improved knee alignement with cuing. Ed provided for awareness of center posturing during gait elongation, TA fac to normal even and more WB into LLE and decrease lateral wt shift end tx post band walk . Physical Therapy Plan Frequency and Duration Frequency of Treatment 2x/Week Plan of Care Start Date 08/06/22 Plan of Care End Date 11/04/22 Therapeutic Interventions Therapeutic Interventions Balance Training,Gait Training ,Home Exercise Program,Joint Mobilizations,Manual Therapy, Neuromuscular Re-education, Patient/Caregiver Education, Self-Care/Home Management,Soft Tissue Mobilization,Taping, Therapeutic Activities, Therapeutic Exercises Modalities Cold Pack/Ice Massage,Electric Stimulation,Hot Packs, Ultrasound Next Visit Focus/Plan Next Note Type Treatment Note Next Visit Plan ROM, gentle strengthening, gait training
--- NOTE | 2022-09-08 13:30 | PT.OTN ---
Current Diagnoses Pain in left knee (09/08/22) Stiffness of left knee, not elsewhere classified (09/08/22) Other abnormalities of gait and mobility (09/08/22) Sprain of anterior cruciate ligament of left knee, initial encounter (09/08/22) Sprain of anterior cruciate ligament of left knee, subsequent encounter (09/08/22) Physical Therapy Treatment Note PT-OP-A Visit Information Start: 08/06/22 17:42 Freq: Status: Active Protocol: Document 09/08/22 12:48 SP (Rec: 09/08/22 13:33 SP [id number]) Out-Patient Physical Therapy Visit Information Visit Information Visit Type Treatment Note Visit Note 10 visit in 3 tx, PT PN. Visit Start Time 12:48 Visit Stop Time 13:30 Total Visit Minutes 42 Visit Number 7 Number of TOOL CLERK Visits 2 Evaluation Information Evaluation Date 08/06/22 Precautions Precautions DOS: 07/13/22, s/p L ACL surgery PT-OP-B Current Condition Start: 08/06/22 17:42 Freq: Status: Active Protocol: Document 08/06/22 15:00 DCW (Rec: 08/06/22 17:52 DCW [id number]) Current Condition History of Current Condition Onset Date 07/22/22 Current Complaints Knee pain/stiffness, gait difficulty s/p ACL reconstruction History of Current Condition Pt is a 42 year old male presenting 15 days s/p ACL reconstruction using quad autograft. Pt reports he is able to get up and walk using a unilateral axillary crutch, goes into the office and can be up moving around for ~3 hours, but then really just needs to rest/ice to recover, and is really just done for the day. Pt has been anxious to get in and get started, has been worried about overdoing any activities, so he hasn't done much in the way of an HEP . Treatment Goals Patient/Caregiver Goals Return to normal functional activity PT-OP-C Subjective Start: 08/06/22 17:42 Freq: Status: Active Protocol: Document 09/08/22 12:48 SP (Rec: 09/08/22 13:33 SP [id number]) OP-PT Subjective Patient Comments Patient Comments Pt reports was out of town in [facility] and walking about 5miles at time and had some pain medial VMO area and distal quat across superior patella. Did get to use bike couple times but was busy. Not as much pain ft supported on wall vs on table/bed with strap. He reports was using the compression sleeve for support and swelling assist but happen to slide down and caused an open sore superior scar. Uses CP. PT-OP-E Functional Tests Start: 08/06/22 17:42 Freq: Status: Active Protocol: Document 08/06/22 15:00 DCW (Rec: 08/07/22 08:47 DCW [id number]) Functional Tests 2 Minute Walk Test Distance 328 Device Used unilateral axillary crutch Comments 2.73 ft/sec PT-OP-K Range of Motion Start: 08/06/22 17:42 Freq: Status: Active Protocol: Document 09/08/22 12:48 SP (Rec: 09/08/22 13:33 SP [id number]) Knee Goniometric Range of Motion Knee Left Knee ROM WFL No Patient Position Supine Flexion Active (degrees) 125 Extension Active (degrees) 0 Comments 09/08/22 AROM L knee: Flexion: improved 49 deg since eval at 125 deg Ext: improved 4 deg to 0 PT-OP-M Strength Start: 08/06/22 17:42 Freq: Status: Active Protocol: Document 08/06/22 15:00 DCW (Rec: 08/07/22 08:47 DCW [id number]) Knee Strength Knee Manual Muscle Testing Left Comments Pt unable to extend leg against gravity, EOB LAQ able to get to 45? PT-OP-Q Treatments Start: 08/06/22 17:42 Freq: Status: Active Protocol: Document 09/08/22 12:48 SP (Rec: 09/08/22 13:33 SP [id number]) Cardio Equipment Bicycle (Upright) Duration (Minutes) 8 Resistance 5 Seat Position 9>8 Other Good tolerance 71 RPMs Therapeutic Exercises Supine Exercises ITB stretch Supine Exercise Name initiated in PT Side left Equipment Used use strap Reps/Minutes 60 x2 Comments good feedback stretch over opp LE Quad sets Supine Exercise Name Quad set Side left Comments manual resisted 3 SH x5 then quick flicks with good contraction. Prone Exercises L knee flexion Prone Exercise Name AAROM w/ strap<> slow eccentric extension Side left Equipment Used rolled towel under thigh Reps/Minutes 3 min Comments 118-120 deg- good feel more movement Standing Exercises resisted stepping Standing Exercise Name lateral, f/b- re HEP Resistance RTB, TB #3 loop upper russell Reps/Minutes 20 ft x 3 laps each direction Comments cued knees over ankles, little bigger normal step length, trail LE clear. Step-ups Standing Exercise Name Step ups repeated Side left Equipment Used 6 step + blue foam repeated Reps/Minutes 2x10 Comments cued with use mirror knee track with midfoot Manual Therapy Treatment Soft Tissue Mobilization scar mobility Body Location L Comments manual and ed self application , not over open sore top scar at this time 09/08 retrograde swelling support Body Location retrograde Comments manual and with knee flexion, decreased quad tightness Joint Mobilizations tibialfemoral Joint L Direction PA Grade I Body Position Supine Comments lower extremity over therapist thigh gentle light and small range distal femur posterior glide on tibia. Painfree improved knee flexion less tension reported. patella Joint L Direction med/lat/ slight rotation Grade II Body Position Supine Comments manual AROM with ed self application, then resisted quad set with good contraction 3 SH x5 reps. PT-OP-T Assessment and Plan Start: 08/06/22 17:42 Freq: Status: Active Protocol: Document 09/08/22 12:48 SP (Rec: 09/08/22 13:33 SP [id number]) Physical Therapy Assessment Goals 3 Impairment supine L knee AROM limited to 4?-76? Impairment Difficulty navigating steps Commissary Superintendent Goal (LTG) Pt to improve supine left knee AROM to at least 0?-120? in order to return to prior outdoor recreational activities including mountain biking LTG Duration 11/04/22 2 Impairment Pt ambulates WBAT using unilateral axillary crutch, relies on UE support Impairment left knee rom limited Residential Goal (LTG) Pt to ambulate 1500' without an assistive device with a gait pattern WNL in order to demonstrate return to prior level of function LTG Duration 11/04/22 1 Impairment Pt does not have an appropriate home exercise program Impairment Difficult to ambulate with FWB through LLE due to pain. Short Term Goal (STG) Pt to be independent and compliant with an appropriate HEP STG Duration 09/06/22 Progress Towards Goals Progress Comments 09/08/22 AROM L knee: Flexion: improved 49 deg since eval at 125 deg Ext: improved 4 deg to 0 Assessment Summary Assessment Pt making gains in AROM post manual and ed self application and found more comfortable with towel under thigh during prone supported AAROM knee flexion w/ strap. Use mirror during uneven surface step ups for L knee tracking while use glut drive to come to top step asc/descend. He reports good effort without pain, cues as needed for knee tracking resisted stepping.TOOL CLERK suggested continue use CP for swelling support. Physical Therapy Plan Frequency and Duration Frequency of Treatment 2x/Week Plan of Care Start Date 08/06/22 Plan of Care End Date 11/04/22 Therapeutic Interventions Therapeutic Interventions Balance Training,Gait Training ,Home Exercise Program,Joint Mobilizations,Manual Therapy, Neuromuscular Re-education, Patient/Caregiver Education, Self-Care/Home Management,Soft Tissue Mobilization,Taping, Therapeutic Activities, Therapeutic Exercises Modalities Cold Pack/Ice Massage,Electric Stimulation,Hot Packs, Ultrasound Next Visit Focus/Plan Next Note Type Treatment Note Next Visit Plan 10 visit in 3 tx, PT PN. Progress ther ex and mobility. POC: ROM, gentle strengthening , gait training
--- NOTE | 2022-09-17 09:50 | PT.OTN ---
Current Diagnoses Pain in left knee (09/17/22) Stiffness of left knee, not elsewhere classified (09/17/22) Other abnormalities of gait and mobility (09/17/22) Sprain of anterior cruciate ligament of left knee, initial encounter (09/17/22) Sprain of anterior cruciate ligament of left knee, subsequent encounter (09/17/22) Physical Therapy Treatment Note PT-OP-A Visit Information Start: 08/06/22 17:42 Freq: Status: Active Protocol: Document 09/17/22 09:03 SP (Rec: 09/17/22 09:55 SP [id number]) Out-Patient Physical Therapy Visit Information Visit Information Visit Type Treatment Note Visit Note 10 visit in 2 tx, PT PN. Visit Start Time 09:03 Visit Stop Time 09:50 Total Visit Minutes 47 Visit Number 8 Number of ICT DEVELOPMENT MANAGER Visits 3 Evaluation Information Evaluation Date 08/06/22 Precautions Precautions DOS: 07/13/22, s/p L ACL surgery PT-OP-B Current Condition Start: 08/06/22 17:42 Freq: Status: Active Protocol: Document 08/06/22 15:00 DCW (Rec: 08/06/22 17:52 DCW [id number]) Current Condition History of Current Condition Onset Date 07/22/22 Current Complaints Knee pain/stiffness, gait difficulty s/p ACL reconstruction History of Current Condition Pt is a 42 year old male presenting 15 days s/p ACL reconstruction using quad autograft. Pt reports he is able to get up and walk using a unilateral axillary crutch, goes into the office and can be up moving around for ~3 hours, but then really just needs to rest/ice to recover, and is really just done for the day. Pt has been anxious to get in and get started, has been worried about overdoing any activities, so he hasn't done much in the way of an HEP . Treatment Goals Patient/Caregiver Goals Return to normal functional activity PT-OP-C Subjective Start: 08/06/22 17:42 Freq: Status: Active Protocol: Document 09/17/22 09:03 SP (Rec: 09/17/22 09:55 SP [id number]) OP-PT Subjective Patient Comments Patient Comments Pt reports not sure when sees ortho next, thinks not to long . States walked on beach and played [employer] over past 2 days and did well but really sore later/next day. Still feel like swelling in L knee and not sure if should be mindful of what does and not over do it. PT-OP-E Functional Tests Start: 08/06/22 17:42 Freq: Status: Active Protocol: Document 08/06/22 15:00 DCW (Rec: 08/07/22 08:47 DCW [id number]) Functional Tests 2 Minute Walk Test Distance 328 Device Used unilateral axillary crutch Comments 2.73 ft/sec PT-OP-K Range of Motion Start: 08/06/22 17:42 Freq: Status: Active Protocol: Document 09/17/22 10:06 SP (Rec: 09/17/22 10:07 SP [id number]) Knee Goniometric Range of Motion Knee Left Knee ROM WFL No Patient Position Supine Flexion Active (degrees) 127 Extension Active (degrees) 0 Comments 09/17/22 AROM L knee: Flexion: improved 1 deg 127 deg PT-OP-M Strength Start: 08/06/22 17:42 Freq: Status: Active Protocol: Document 08/06/22 15:00 DCW (Rec: 08/07/22 08:47 DCW [id number]) Knee Strength Knee Manual Muscle Testing Left Comments Pt unable to extend leg against gravity, EOB LAQ able to get to 45? PT-OP-Q Treatments Start: 08/06/22 17:42 Freq: Status: Active Protocol: Document 09/17/22 09:03 SP (Rec: 09/17/22 09:55 SP [id number]) Cardio Equipment Recumbent Bicycle Duration (Minutes) 8 Resistance 4 Seat Position 6>1 Other full rotations, 124 deg flexion Gym Equipment Shuttle Recovery unilateral Resistance 50# (1 new band) L, 75# left ( 2 new bands) Reps/Time x15 bilateral squat Resistance 75 #(2 new bands)> (3 new bands or 87 # next) Reps/Time x20 (unlocked) Therapeutic Exercises Sitting Exercises star glides Sitting Exercise Name added to HEP Resistance AROM Reps/Minutes x3 reps x2 sets (1, 3, 5, 6 o 'clock) Comments cued hips, knee, feet //, elongated posture w/ core fac STS Sitting Exercise Name added to HEP Resistance GTB around inferior knees Equipment Used body solid bench, arms front Reps/Minutes x10 Comments cues knees in/behind toes Standing Exercises Step-ups Standing Exercise Name Step ups repeated- added HEP Side left Equipment Used BOSU, contact rail PRN Reps/Minutes 2x10 Comments cued L knee track with midfoot Manual Therapy Treatment Soft Tissue Mobilization scar mobility Body Location L Comments manual and ed self application , not over open sore top scar healing well. retrograde swelling support Body Location retrograde Mobilization Type Instrument Assisted,Myofascial Release Comments manual including cupping PT-OP-T Assessment and Plan Start: 08/06/22 17:42 Freq: Status: Active Protocol: Document 09/17/22 09:03 SP (Rec: 09/17/22 09:55 SP [id number]) Physical Therapy Assessment Goals 3 Impairment supine L knee AROM limited to 4?-76? Impairment Difficulty navigating steps Automatic Pilot Mechanic Goal (LTG) Pt to improve supine left knee AROM to at least 0?-120? in order to return to prior outdoor recreational activities including mountain biking LTG Duration 11/04/22 2 Impairment Pt ambulates WBAT using unilateral axillary crutch, relies on UE support Impairment left knee rom limited Chcf Goal (LTG) Pt to ambulate 1500' without an assistive device with a gait pattern WNL in order to demonstrate return to prior level of function 09/17/22: Pt reporting able to walk [place] last weekend and beach this week with little L medial soreness but improving. Still concerned of L knee swelling. Ed for icing during day. LTG Duration 11/04/22 progressing 09/17/22 1 Impairment Pt does not have an appropriate home exercise program Impairment Difficult to ambulate with FWB through LLE due to pain. Short Term Goal (STG) Pt to be independent and compliant with an appropriate HEP 09/17/22: added SLS star glides, STS w/ TB below knees. STG Duration 09/06/22 progressed 09/17/22 Assessment Summary Assessment Pt responded well to manual MFR/scar mobility with less tension with knee flexion post . Pt good tolerance to progressed ther ex with cues for alignment today feels better with reports of good muscle challenge work, less medial L knee soreness with cues for alignment and added TB resistance but states feels good to being doing more activity. Physical Therapy Plan Frequency and Duration Frequency of Treatment 2x/Week Plan of Care Start Date 08/06/22 Plan of Care End Date 11/04/22 Therapeutic Interventions Therapeutic Interventions Balance Training,Gait Training ,Home Exercise Program,Joint Mobilizations,Manual Therapy, Neuromuscular Re-education, Patient/Caregiver Education, Self-Care/Home Management,Soft Tissue Mobilization,Taping, Therapeutic Activities, Therapeutic Exercises Modalities Cold Pack/Ice Massage,Electric Stimulation,Hot Packs, Ultrasound Next Visit Focus/Plan Next Note Type Treatment Note Next Visit Plan 10 visit in 2 tx, PT PN. Progress ther ex and mobility. CHeck star glides, STS, step ups BOSU last tx. POC: ROM, gentle strengthening , gait training
--- NOTE | 2022-09-23 16:30 | PT.OTN ---
Current Diagnoses Pain in left knee (09/23/22) Stiffness of left knee, not elsewhere classified (09/23/22) Other abnormalities of gait and mobility (09/23/22) Sprain of anterior cruciate ligament of left knee, initial encounter (09/23/22) Sprain of anterior cruciate ligament of left knee, subsequent encounter (09/23/22) Physical Therapy Treatment Note PT-OP-A Visit Information Start: 08/06/22 17:42 Freq: Status: Active Protocol: Document 09/23/22 15:50 DCW (Rec: 09/23/22 16:30 DCW [id number]) Out-Patient Physical Therapy Visit Information Visit Information Visit Type Treatment Note Visit Note 10 visit in 1 tx, PT PN. Visit Start Time 15:50 Visit Stop Time 16:30 Total Visit Minutes 40 Visit Number 9 Number of VICTIM WITNESS ADMINISTRATOR Visits 0 Evaluation Information Evaluation Date 08/06/22 Precautions Precautions DOS: 07/22/22, s/p L ACL surgery PT-OP-B Current Condition Start: 08/06/22 17:42 Freq: Status: Active Protocol: Document 08/06/22 15:00 DCW (Rec: 08/06/22 17:52 DCW [id number]) Current Condition History of Current Condition Onset Date 07/22/22 Current Complaints Knee pain/stiffness, gait difficulty s/p ACL reconstruction History of Current Condition Pt is a 42 year old male presenting 15 days s/p ACL reconstruction using quad autograft. Pt reports he is able to get up and walk using a unilateral axillary crutch, goes into the office and can be up moving around for ~3 hours, but then really just needs to rest/ice to recover, and is really just done for the day. Pt has been anxious to get in and get started, has been worried about overdoing any activities, so he hasn't done much in the way of an HEP . Treatment Goals Patient/Caregiver Goals Return to normal functional activity PT-OP-C Subjective Start: 08/06/22 17:42 Freq: Status: Active Protocol: Document 09/23/22 15:50 DCW (Rec: 09/23/22 16:30 DCW [id number]) OP-PT Subjective Patient Comments Patient Comments Pain with daily activity is not bothering him, tried the foot slides at home and had a bad pain, but otherwise is feeling good. PT-OP-E Functional Tests Start: 08/06/22 17:42 Freq: Status: Active Protocol: Document 08/06/22 15:00 DCW (Rec: 08/07/22 08:47 DCW [id number]) Functional Tests 2 Minute Walk Test Distance 328 Device Used unilateral axillary crutch Comments 2.73 ft/sec PT-OP-K Range of Motion Start: 08/06/22 17:42 Freq: Status: Active Protocol: Document 09/17/22 10:06 SP (Rec: 09/17/22 10:07 SP [id number]) Knee Goniometric Range of Motion Knee Left Knee ROM WFL No Patient Position Supine Flexion Active (degrees) 127 Extension Active (degrees) 0 Comments 09/17/22 AROM L knee: Flexion: improved 1 deg 127 deg PT-OP-M Strength Start: 08/06/22 17:42 Freq: Status: Active Protocol: Document 08/06/22 15:00 DCW (Rec: 08/07/22 08:47 DCW [id number]) Knee Strength Knee Manual Muscle Testing Left Comments Pt unable to extend leg against gravity, EOB LAQ able to get to 45? PT-OP-Q Treatments Start: 08/06/22 17:42 Freq: Status: Active Protocol: Document 09/23/22 15:50 DCW (Rec: 09/23/22 16:30 DCW [id number]) Cardio Equipment Bicycle (Upright) Duration (Minutes) 7 Resistance 7 Seat Position 6 Other Good tolerance Treadmill Duration (Minutes) 2 Speed 1.5->3.0->4.5 Other Gentle jog, pt strongly favoring Gym Equipment Shuttle Recovery Plyometric hopping Resistance 25# Shuttle Balance Red Details Staggered, Lateral weight shift Therapeutic Exercises Standing Exercises Step-ups Standing Exercise Name Lateral Step ups Side left Equipment Used 6 step Reps/Minutes 2x10 Comments cued L knee track with midfoot Calf Stretch Standing Exercise Name JOSE Side bilateral Other Exercises BOSU Lunge Other Exercise Name BOSU Lunge Side bilateral Equipment Used Blue BOSU Ladder Drill Other Exercise Name Ladder drill Lateral shuffle Other Exercise Name Lateral shuffle PT-OP-T Assessment and Plan Start: 08/06/22 17:42 Freq: Status: Active Protocol: Document 09/23/22 15:50 DCW (Rec: 09/23/22 16:30 DCW [id number]) Physical Therapy Assessment Goals 3 Impairment supine L knee AROM limited to 4?-76? Impairment Difficulty navigating steps Nursing Home Goal (LTG) Pt to improve supine left knee AROM to at least 0?-120? in order to return to prior outdoor recreational activities including mountain biking LTG Duration 11/04/22 2 Impairment Pt ambulates WBAT using unilateral axillary crutch, relies on UE support Impairment left knee rom limited Nursing Home Goal (LTG) Pt to ambulate 1500' without an assistive device with a gait pattern WNL in order to demonstrate return to prior level of function 09/17/22: Pt reporting able to walk [place] last weekend and beach this week with little L medial soreness but improving. Still concerned of L knee swelling. Ed for icing during day. LTG Duration 11/04/22 progressing 09/17/22 1 Impairment Pt does not have an appropriate home exercise program Impairment Difficult to ambulate with FWB through LLE due to pain. Short Term Goal (STG) Pt to be independent and compliant with an appropriate HEP 09/17/22: added SLS star glides, STS w/ TB below knees. STG Duration 09/06/22 progressed 09/17/22 Assessment Summary Assessment Increasing difficulty in pt rehab this week, added lateral shuffles, trial of very light hopping on leg press (25# resistance), pt tolerated well . Trial of jogging on treadmill, pt very quickly began favoring surgical leg, stopped after short time. Physical Therapy Plan Frequency and Duration Frequency of Treatment 2x/Week Plan of Care Start Date 08/06/22 Plan of Care End Date 11/04/22 Therapeutic Interventions Therapeutic Interventions Balance Training,Gait Training ,Home Exercise Program,Joint Mobilizations,Manual Therapy, Neuromuscular Re-education, Patient/Caregiver Education, Self-Care/Home Management,Soft Tissue Mobilization,Taping, Therapeutic Activities, Therapeutic Exercises Modalities Cold Pack/Ice Massage,Electric Stimulation,Hot Packs, Ultrasound Next Visit Focus/Plan Next Note Type Treatment Note Next Visit Plan 10 visit in 2 tx, PT PN. Progress ther ex and mobility. CHeck star glides, STS, step ups BOSU last tx. POC: ROM, gentle strengthening , gait training
--- NOTE | 2022-09-30 16:30 | PT.OTN ---
Current Diagnoses Pain in left knee (09/30/22) Stiffness of left knee, not elsewhere classified (09/30/22) Other abnormalities of gait and mobility (09/30/22) Sprain of anterior cruciate ligament of left knee, initial encounter (09/30/22) Sprain of anterior cruciate ligament of left knee, subsequent encounter (09/30/22) Physical Therapy Treatment Note PT-OP-A Visit Information Start: 08/06/22 17:42 Freq: Status: Active Protocol: Document 09/30/22 15:50 DCW (Rec: 09/30/22 16:30 DCW [id number]) Out-Patient Physical Therapy Visit Information Visit Information Visit Type Treatment Note Visit Start Time 15:50 Visit Stop Time 16:30 Total Visit Minutes 40 Visit Number 10 Number of REGENERATOR OPERATOR Visits 0 Evaluation Information Evaluation Date 08/06/22 Precautions Precautions DOS: 07/22/22, s/p L ACL surgery PT-OP-B Current Condition Start: 08/06/22 17:42 Freq: Status: Active Protocol: Document 08/06/22 15:00 DCW (Rec: 08/06/22 17:52 DCW [id number]) Current Condition History of Current Condition Onset Date 07/22/22 Current Complaints Knee pain/stiffness, gait difficulty s/p ACL reconstruction History of Current Condition Pt is a 42 year old male presenting 15 days s/p ACL reconstruction using quad autograft. Pt reports he is able to get up and walk using a unilateral axillary crutch, goes into the office and can be up moving around for ~3 hours, but then really just needs to rest/ice to recover, and is really just done for the day. Pt has been anxious to get in and get started, has been worried about overdoing any activities, so he hasn't done much in the way of an HEP . Treatment Goals Patient/Caregiver Goals Return to normal functional activity PT-OP-C Subjective Start: 08/06/22 17:42 Freq: Status: Active Protocol: Document 09/30/22 15:50 DCW (Rec: 09/30/22 16:30 DCW [id number]) OP-PT Subjective Patient Comments Patient Comments If I'm on it for a few hours, it gets a little swollen still, but it's not bad. PT-OP-E Functional Tests Start: 08/06/22 17:42 Freq: Status: Active Protocol: Document 08/06/22 15:00 DCW (Rec: 08/07/22 08:47 DCW [id number]) Functional Tests 2 Minute Walk Test Distance 328 Device Used unilateral axillary crutch Comments 2.73 ft/sec PT-OP-K Range of Motion Start: 08/06/22 17:42 Freq: Status: Active Protocol: Document 09/17/22 10:06 SP (Rec: 09/17/22 10:07 SP [id number]) Knee Goniometric Range of Motion Knee Left Knee ROM WFL No Patient Position Supine Flexion Active (degrees) 127 Extension Active (degrees) 0 Comments 09/17/22 AROM L knee: Flexion: improved 1 deg 127 deg PT-OP-M Strength Start: 08/06/22 17:42 Freq: Status: Active Protocol: Document 08/06/22 15:00 DCW (Rec: 08/07/22 08:47 DCW [id number]) Knee Strength Knee Manual Muscle Testing Left Comments Pt unable to extend leg against gravity, EOB LAQ able to get to 45? PT-OP-Q Treatments Start: 08/06/22 17:42 Freq: Status: Active Protocol: Document 09/30/22 15:50 DCW (Rec: 09/30/22 16:30 DCW [id number]) Cardio Equipment Treadmill Duration (Minutes) 4 Speed 3.5->4.5->4.0 Other Gentle jog, pt strongly favoring affected leg Gym Equipment Shuttle Recovery Plyometric hopping Resistance 25# Shuttle Balance Red Details Staggered, Lateral weight shift Sport Cord Blue Exercise Details BOSU Lunge /c lateral pull Therapeutic Exercises Other Exercises Ladder Drill Other Exercise Name Ladder drill Lateral shuffle Other Exercise Name Lateral shuffle PT-OP-T Assessment and Plan Start: 08/06/22 17:42 Freq: Status: Active Protocol: Document 09/30/22 15:50 DCW (Rec: 09/30/22 16:30 DCW [id number]) Physical Therapy Assessment Goals 3 Impairment supine L knee AROM limited to 4?-76? Impairment Difficulty navigating steps Basin Tender Goal (LTG) Pt to improve supine left knee AROM to at least 0?-120? in order to return to prior outdoor recreational activities including mountain biking LTG Duration 11/04/22 2 Impairment Pt ambulates WBAT using unilateral axillary crutch, relies on UE support Impairment left knee rom limited Basin Tender Goal (LTG) Pt to ambulate 1500' without an assistive device with a gait pattern WNL in order to demonstrate return to prior level of function 09/17/22: Pt reporting able to walk [place] last weekend and beach this week with little L medial soreness but improving. Still concerned of L knee swelling. Ed for icing during day. LTG Duration 11/04/22 progressing 09/17/22 1 Impairment Pt does not have an appropriate home exercise program Impairment Difficult to ambulate with FWB through LLE due to pain. Short Term Goal (STG) Pt to be independent and compliant with an appropriate HEP 09/17/22: added SLS star glides, STS w/ TB below knees. STG Duration 09/06/22 progressed 09/17/22 Assessment Summary Assessment Increased general soreness in left knee today, especially with lateral movements. Pt does note he has spent 4-5 hours doing yard work the last few days. Physical Therapy Plan Frequency and Duration Frequency of Treatment 2x/Week Plan of Care Start Date 08/06/22 Plan of Care End Date 11/04/22 Therapeutic Interventions Therapeutic Interventions Balance Training,Gait Training ,Home Exercise Program,Joint Mobilizations,Manual Therapy, Neuromuscular Re-education, Patient/Caregiver Education, Self-Care/Home Management,Soft Tissue Mobilization,Taping, Therapeutic Activities, Therapeutic Exercises Modalities Cold Pack/Ice Massage,Electric Stimulation,Hot Packs, Ultrasound Next Visit Focus/Plan Next Note Type Treatment Note Next Visit Plan Progress ther ex and mobility. CHeck star glides, STS, step ups BOSU last tx. POC: ROM, gentle strengthening , gait training
--- NOTE | 2022-10-12 15:35 | PT.OTN ---
Current Diagnoses Pain in left knee (10/12/22) Stiffness of left knee, not elsewhere classified (10/12/22) Other abnormalities of gait and mobility (10/12/22) Sprain of anterior cruciate ligament of left knee, initial encounter (10/12/22) Sprain of anterior cruciate ligament of left knee, subsequent encounter (10/12/22) Physical Therapy Treatment Note PT-OP-A Visit Information Start: 08/06/22 17:42 Freq: Status: Active Protocol: Document 10/12/22 14:48 DCW (Rec: 10/12/22 15:35 DCW [id number]) Out-Patient Physical Therapy Visit Information Visit Information Visit Type Treatment Note Visit Start Time 14:48 Visit Stop Time 15:30 Total Visit Minutes 42 Visit Number 11 Number of CONTROL INSPECTOR Visits 0 Evaluation Information Evaluation Date 08/06/22 Precautions Precautions DOS: 07/22/22, s/p L ACL surgery PT-OP-B Current Condition Start: 08/06/22 17:42 Freq: Status: Active Protocol: Document 08/06/22 15:00 DCW (Rec: 08/06/22 17:52 DCW [id number]) Current Condition History of Current Condition Onset Date 07/22/22 Current Complaints Knee pain/stiffness, gait difficulty s/p ACL reconstruction History of Current Condition Pt is a 42 year old male presenting 15 days s/p ACL reconstruction using quad autograft. Pt reports he is able to get up and walk using a unilateral axillary crutch, goes into the office and can be up moving around for ~3 hours, but then really just needs to rest/ice to recover, and is really just done for the day. Pt has been anxious to get in and get started, has been worried about overdoing any activities, so he hasn't done much in the way of an HEP . Treatment Goals Patient/Caregiver Goals Return to normal functional activity PT-OP-C Subjective Start: 08/06/22 17:42 Freq: Status: Active Protocol: Document 10/12/22 14:48 DCW (Rec: 10/12/22 15:35 DCW [id number]) OP-PT Subjective Patient Comments Patient Comments Pt reports he was able to be outside doing a lot of workout for ~3 hours yesterday, feels a little tight and sore today , but otherwise fine. PT-OP-E Functional Tests Start: 08/06/22 17:42 Freq: Status: Active Protocol: Document 08/06/22 15:00 DCW (Rec: 08/07/22 08:47 DCW [id number]) Functional Tests 2 Minute Walk Test Distance 328 Device Used unilateral axillary crutch Comments 2.73 ft/sec PT-OP-K Range of Motion Start: 08/06/22 17:42 Freq: Status: Active Protocol: Document 09/17/22 10:06 SP (Rec: 09/17/22 10:07 SP [id number]) Knee Goniometric Range of Motion Knee Left Knee ROM WFL No Patient Position Supine Flexion Active (degrees) 127 Extension Active (degrees) 0 Comments 09/17/22 AROM L knee: Flexion: improved 1 deg 127 deg PT-OP-M Strength Start: 08/06/22 17:42 Freq: Status: Active Protocol: Document 08/06/22 15:00 DCW (Rec: 08/07/22 08:47 DCW [id number]) Knee Strength Knee Manual Muscle Testing Left Comments Pt unable to extend leg against gravity, EOB LAQ able to get to 45? PT-OP-Q Treatments Start: 08/06/22 17:42 Freq: Status: Active Protocol: Document 10/12/22 14:48 DCW (Rec: 10/12/22 15:35 DCW [id number]) Cardio Equipment Elliptical Duration (Minutes) 6 Resistance 6 Gym Equipment Shuttle Balance Red Details Staggered Ball toss, Lateral weight shift Therapeutic Exercises Sitting Exercises Piriformis Stretch Sitting Exercise Name Seated figure-4 Standing Exercises Step-ups Standing Exercise Name Lateral Step ups Side left Equipment Used 6 step Reps/Minutes 2x10 Comments cued L knee track with midfoot Calf Stretch Standing Exercise Name JOSE Side bilateral Other Exercises Star Slides Other Exercise Name Star Slides Comments L stance leg SLS Cone Tap Other Exercise Name Tap weights ball to 5 cones in SLS BOSU Lunge Other Exercise Name BOSU Lunge Side bilateral Equipment Used Blue BOSU Ladder Drill Other Exercise Name Ladder drill Lateral shuffle Other Exercise Name Lateral shuffle PT-OP-T Assessment and Plan Start: 08/06/22 17:42 Freq: Status: Active Protocol: Document 10/12/22 14:48 DCW (Rec: 10/12/22 15:35 DCW [id number]) Physical Therapy Assessment Impairments Impairments Activity Tolerance,Balance, Functional Activities, Functional Mobility,Gait,Pain, ROM,Soft Tissue Mobility, Strength,Tone Goals 3 Impairment supine L knee AROM limited to 4?-76? Impairment Difficulty navigating steps [facility] Goal (LTG) Pt to improve supine left knee AROM to at least 0?-120? in order to return to prior outdoor recreational activities including mountain biking LTG Duration 11/04/22 2 Impairment Pt ambulates WBAT using unilateral axillary crutch, relies on UE support Impairment left knee rom limited [facility] Goal (LTG) Pt to ambulate 1500' without an assistive device with a gait pattern WNL in order to demonstrate return to prior level of function 09/17/22: Pt reporting able to walk [place] last weekend and beach this week with little L medial soreness but improving. Still concerned of L knee swelling. Ed for icing during day. LTG Duration 11/04/22 progressing 09/17/22 1 Impairment Pt does not have an appropriate home exercise program Impairment Difficult to ambulate with FWB through LLE due to pain. Short Term Goal (STG) Pt to be independent and compliant with an appropriate HEP 09/17/22: added SLS star glides, STS w/ TB below knees. STG Duration 09/06/22 progressed 09/17/22 Assessment Summary Assessment Pt doing very well with increasing difficulty and instability of left knee challenges, did well today with star sliding and SLS cone taps. Continue to focus on stability and strengthening. Physical Therapy Plan Frequency and Duration Frequency of Treatment 2x/Week Plan of Care Start Date 08/06/22 Plan of Care End Date 11/04/22 Therapeutic Interventions Therapeutic Interventions Balance Training,Gait Training ,Home Exercise Program,Joint Mobilizations,Manual Therapy, Neuromuscular Re-education, Patient/Caregiver Education, Self-Care/Home Management,Soft Tissue Mobilization,Taping, Therapeutic Activities, Therapeutic Exercises Modalities Cold Pack/Ice Massage,Electric Stimulation,Hot Packs, Ultrasound Next Visit Focus/Plan Next Note Type Treatment Note Next Visit Plan Progress ther ex and mobility. CHeck star glides, STS, step ups BOSU last tx. POC: ROM, gentle strengthening , gait training
--- NOTE | 2022-10-28 15:30 | PT.OTN ---
Current Diagnoses Pain in left knee (10/28/22) Stiffness of left knee, not elsewhere classified (10/28/22) Other abnormalities of gait and mobility (10/28/22) Sprain of anterior cruciate ligament of left knee, subsequent encounter (10/28/22) Physical Therapy Treatment Note PT-OP-A Visit Information Start: 08/06/22 17:42 Freq: Status: Active Protocol: Document 10/28/22 14:45 DCW (Rec: 10/28/22 15:30 DCW [id number]) Out-Patient Physical Therapy Visit Information Visit Information Visit Type Treatment Note Visit Start Time 14:45 Visit Stop Time 15:30 Total Visit Minutes 45 Visit Number 12 Number of LOGGER Visits 0 Evaluation Information Evaluation Date 08/06/22 Precautions Precautions DOS: 07/22/22, s/p L ACL surgery PT-OP-B Current Condition Start: 08/06/22 17:42 Freq: Status: Active Protocol: Document 08/06/22 15:00 DCW (Rec: 08/06/22 17:52 DCW [id number]) Current Condition History of Current Condition Onset Date 07/22/22 Current Complaints Knee pain/stiffness, gait difficulty s/p ACL reconstruction History of Current Condition Pt is a 42 year old male presenting 15 days s/p ACL reconstruction using quad autograft. Pt reports he is able to get up and walk using a unilateral axillary crutch, goes into the office and can be up moving around for ~3 hours, but then really just needs to rest/ice to recover, and is really just done for the day. Pt has been anxious to get in and get started, has been worried about overdoing any activities, so he hasn't done much in the way of an HEP . Treatment Goals Patient/Caregiver Goals Return to normal functional activity PT-OP-C Subjective Start: 08/06/22 17:42 Freq: Status: Active Protocol: Document 10/28/22 14:45 DCW (Rec: 10/28/22 15:30 DCW [id number]) OP-PT Subjective Patient Comments Patient Comments I worked a bunch last week, on a hill, went for a hike over the weekend, just ~20 minutes, but it went alright. Did a leg workout at the gym, no weights, just bodyweight, it went fine. PT-OP-E Functional Tests Start: 08/06/22 17:42 Freq: Status: Active Protocol: Document 08/06/22 15:00 DCW (Rec: 08/07/22 08:47 DCW [id number]) Functional Tests 2 Minute Walk Test Distance 328 Device Used unilateral axillary crutch Comments 2.73 ft/sec PT-OP-K Range of Motion Start: 08/06/22 17:42 Freq: Status: Active Protocol: Document 09/17/22 10:06 SP (Rec: 09/17/22 10:07 SP [id number]) Knee Goniometric Range of Motion Knee Left Knee ROM WFL No Patient Position Supine Flexion Active (degrees) 127 Extension Active (degrees) 0 Comments 09/17/22 AROM L knee: Flexion: improved 1 deg 127 deg PT-OP-M Strength Start: 08/06/22 17:42 Freq: Status: Active Protocol: Document 08/06/22 15:00 DCW (Rec: 08/07/22 08:47 DCW [id number]) Knee Strength Knee Manual Muscle Testing Left Comments Pt unable to extend leg against gravity, EOB LAQ able to get to 45? PT-OP-Q Treatments Start: 08/06/22 17:42 Freq: Status: Active Protocol: Document 10/28/22 14:45 DCW (Rec: 10/28/22 15:30 DCW [id number]) Cardio Equipment Elliptical Duration (Minutes) 6 Resistance 6 Other 3' fwd, 3' bkwd Gym Equipment Shuttle Recovery Plyometric hopping Resistance 37# Shuttle Balance Red Details Staggered Ball toss, Lateral weight shift Therapeutic Exercises Other Exercises 4 Corner Drill Other Exercise Name 4 Corner Drill Hopping Other Exercise Name DL->SL Hopping BOSU Lunge Other Exercise Name BOSU Lunge Side bilateral Equipment Used Blue BOSU Ladder Drill Other Exercise Name Ladder drill Lateral shuffle Other Exercise Name Lateral shuffle Manual Therapy Treatment Joint Mobilizations tibialfemoral Joint L Direction P<->A Grade III Body Position Hooklying PT-OP-T Assessment and Plan Start: 08/06/22 17:42 Freq: Status: Active Protocol: Document 10/28/22 14:45 DCW (Rec: 10/28/22 15:30 DCW [id number]) Physical Therapy Assessment Impairments Impairments Activity Tolerance,Balance, Functional Activities, Functional Mobility,Gait,Pain, ROM,Soft Tissue Mobility, Strength,Tone Goals 3 Impairment supine L knee AROM limited to 4?-76? Impairment Difficulty navigating steps Textile Bag Sewer Goal (LTG) Pt to improve supine left knee AROM to at least 0?-120? in order to return to prior outdoor recreational activities including mountain biking LTG Duration 11/04/22 2 Impairment Pt ambulates WBAT using unilateral axillary crutch, relies on UE support Impairment left knee rom limited [facility] Goal (LTG) Pt to ambulate 1500' without an assistive device with a gait pattern WNL in order to demonstrate return to prior level of function 09/17/22: Pt reporting able to walk [place] last weekend and beach this week with little L medial soreness but improving. Still concerned of L knee swelling. Ed for icing during day. LTG Duration 11/04/22 progressing 09/17/22 1 Impairment Pt does not have an appropriate home exercise program Impairment Difficult to ambulate with FWB through LLE due to pain. Short Term Goal (STG) Pt to be independent and compliant with an appropriate HEP 09/17/22: added SLS star glides, STS w/ TB below knees. STG Duration 09/06/22 progressed 09/17/22 Assessment Summary Assessment Pt showing good improvement with AROM, measured today at 131? L flexion, vs 134? R flexion. Responding well to increased lateral movements and very mild hopping Physical Therapy Plan Frequency and Duration Frequency of Treatment 2x/Week Plan of Care Start Date 08/06/22 Plan of Care End Date 11/04/22 Therapeutic Interventions Therapeutic Interventions Balance Training,Gait Training ,Home Exercise Program,Joint Mobilizations,Manual Therapy, Neuromuscular Re-education, Patient/Caregiver Education, Self-Care/Home Management,Soft Tissue Mobilization,Taping, Therapeutic Activities, Therapeutic Exercises Modalities Cold Pack/Ice Massage,Electric Stimulation,Hot Packs, Ultrasound Next Visit Focus/Plan Next Note Type Progress Note Next Visit Plan Progress ther ex and mobility. CHeck star glides, STS, step ups BOSU last tx. POC: ROM, gentle strengthening , gait training
--- NOTE | 2022-11-12 17:11 | PT.OTN ---
Current Diagnoses Pain in left knee (11/12/22) Stiffness of left knee, not elsewhere classified (11/12/22) Other abnormalities of gait and mobility (11/12/22) Sprain of anterior cruciate ligament of left knee, subsequent encounter (11/12/22) Physical Therapy Treatment Note PT-OP-A Visit Information Start: 08/06/22 17:42 Freq: Status: Active Protocol: Document 11/12/22 16:30 DCW (Rec: 11/12/22 17:10 DCW [id number]) Out-Patient Physical Therapy Visit Information Visit Information Visit Type Discharge Summary Visit Start Time 16:30 Visit Stop Time 17:05 Total Visit Minutes 35 Visit Number 13 Number of [employer] Visits 0 Evaluation Information Evaluation Date 08/06/22 Precautions Precautions DOS: 07/22/22, s/p L ACL surgery PT-OP-B Current Condition Start: 08/06/22 17:42 Freq: Status: Active Protocol: Document 08/06/22 15:00 DCW (Rec: 08/06/22 17:52 DCW [id number]) Current Condition History of Current Condition Onset Date 07/22/22 Current Complaints Knee pain/stiffness, gait difficulty s/p ACL reconstruction History of Current Condition Pt is a 42 year old male presenting 15 days s/p ACL reconstruction using quad autograft. Pt reports he is able to get up and walk using a unilateral axillary crutch, goes into the office and can be up moving around for ~3 hours, but then really just needs to rest/ice to recover, and is really just done for the day. Pt has been anxious to get in and get started, has been worried about overdoing any activities, so he hasn't done much in the way of an HEP . Treatment Goals Patient/Caregiver Goals Return to normal functional activity PT-OP-C Subjective Start: 08/06/22 17:42 Freq: Status: Active Protocol: Document 11/12/22 16:30 DCW (Rec: 11/12/22 16:37 DCW [id number]) OP-PT Subjective Patient Comments Patient Comments Notes he is doing well, was able to get up on the ladder and do some gutter maintenance . Admits he was sore for about a week after last session. PT-OP-E Functional Tests Start: 08/06/22 17:42 Freq: Status: Active Protocol: Document 11/12/22 16:30 DCW (Rec: 11/12/22 16:50 DCW [id number]) Functional Tests 6 Minute Walk Test Distance 1735' Device Used None Comments 4.82 ft/sec PT-OP-K Range of Motion Start: 08/06/22 17:42 Freq: Status: Active Protocol: Document 11/12/22 16:30 DCW (Rec: 11/12/22 16:50 DCW [id number]) Knee Goniometric Range of Motion Knee Left Knee ROM WFL No Patient Position Supine Flexion Active (degrees) 132 Extension Active (degrees) 0 PT-OP-M Strength Start: 08/06/22 17:42 Freq: Status: Active Protocol: Document 11/12/22 16:30 DCW (Rec: 11/12/22 16:50 DCW [id number]) Knee Strength Knee Manual Muscle Testing Left Flexion (S2) 5 Normal Extension (L3) 5 Normal PT-OP-Q Treatments Start: 08/06/22 17:42 Freq: Status: Active Protocol: Document 11/12/22 16:30 DCW (Rec: 11/12/22 17:10 DCW [id number]) Cardio Equipment Elliptical Duration (Minutes) 6 Resistance 6 Other 3' fwd, 3' bkwd Gym Equipment Shuttle Recovery Plyometric hopping Resistance 37# PT-OP-T Assessment and Plan Start: 08/06/22 17:42 Freq: Status: Active Protocol: Document 11/12/22 16:30 DCW (Rec: 11/12/22 17:10 DCW [id number]) Physical Therapy Assessment Impairments Impairments Activity Tolerance,Balance, Functional Activities, Functional Mobility,Gait,Pain, ROM,Soft Tissue Mobility, Strength,Tone Goals 3 Impairment supine L knee AROM limited to 4?-76? Impairment Difficulty navigating steps Manager Configuration Goal (LTG) Pt to improve supine left knee AROM to at least 0?-120? in order to return to prior outdoor recreational activities including mountain biking LTG Duration Met 2 Impairment Pt ambulates WBAT using unilateral axillary crutch, relies on UE support Impairment left knee rom limited Fdc Goal (LTG) Pt to ambulate 1500' without an assistive device with a gait pattern WNL in order to demonstrate return to prior level of function LTG Duration Met 1 Impairment Pt does not have an appropriate home exercise program Short Term Goal (STG) Pt to be independent and compliant with an appropriate HEP STG Duration Met Assessment Summary Assessment Pt currently 16 weeks s/p L ACL repair. Doing very well in all areas. Has met all goals at this time. Pt notes understanding of continuing recovery process, feels comfortable with discharge to independent HEP at this time. Physical Therapy Plan Frequency and Duration Frequency of Treatment 1x/Week Plan of Care Start Date 11/12/22 Plan of Care End Date 11/13/22 Therapeutic Interventions Therapeutic Interventions Balance Training,Gait Training ,Home Exercise Program,Joint Mobilizations,Manual Therapy, Neuromuscular Re-education, Patient/Caregiver Education, Self-Care/Home Management,Soft Tissue Mobilization,Taping, Therapeutic Activities, Therapeutic Exercises Modalities Cold Pack/Ice Massage,Electric Stimulation,Hot Packs, Ultrasound Discharge Physical Therapy Discharge Reasons Goals Met Next Visit Focus/Plan Next Note Type Discharge Summary
--- NOTE | 2022-11-12 17:11 | PT.OPPOC ---
Physical, Occupational & Speech Therapy At [facility] Current Diagnoses Pain in left knee (11/12/22) Stiffness of left knee, not elsewhere classified (11/12/22) Other abnormalities of gait and mobility (11/12/22) Sprain of anterior cruciate ligament of left knee, subsequent encounter (11/12/22) Visit Care Team Role Provider Type Celio Eli MD Family Provider Physician Primary Care Provider Specialty: Internal Medicine Address: [address] [place] [address], [address], [address] Email: [email or web address] Stone Daniels MD Attending Provider Physician Referring Provider Specialty: Orthopedics Orthopedic Surgery Address: [address] [place] [address], [id number] Email: [email or web address] Plan Of Care PT-OP-T Assessment and Plan Start: 08/06/22 17:42 Freq: Status: Active Protocol: Document 11/12/22 16:30 DCW (Rec: 11/12/22 17:10 DCW [id number]) Physical Therapy Assessment Impairments Impairments Activity Tolerance,Balance, Functional Activities, Functional Mobility,Gait,Pain, ROM,Soft Tissue Mobility, Strength,Tone Goals 3 Impairment supine L knee AROM limited to 4?-76? Impairment Difficulty navigating steps Detention Goal (LTG) Pt to improve supine left knee AROM to at least 0?-120? in order to return to prior outdoor recreational activities including mountain biking LTG Duration Met 2 Impairment Pt ambulates WBAT using unilateral axillary crutch, relies on UE support Impairment left knee rom limited Spinneret Person Goal (LTG) Pt to ambulate 1500' without an assistive device with a gait pattern WNL in order to demonstrate return to prior level of function LTG Duration Met 1 Impairment Pt does not have an appropriate home exercise program Short Term Goal (STG) Pt to be independent and compliant with an appropriate HEP STG Duration Met Assessment Summary Assessment Pt currently 16 weeks s/p L ACL repair. Doing very well in all areas. Has met all goals at this time. Pt notes understanding of continuing recovery process, feels comfortable with discharge to independent HEP at this time. Physical Therapy Plan Frequency and Duration Frequency of Treatment 1x/Week Plan of Care Start Date 11/12/22 Plan of Care End Date 11/13/22 Therapeutic Interventions Therapeutic Interventions Balance Training,Gait Training ,Home Exercise Program,Joint Mobilizations,Manual Therapy, Neuromuscular Re-education, Patient/Caregiver Education, Self-Care/Home Management,Soft Tissue Mobilization,Taping, Therapeutic Activities, Therapeutic Exercises Modalities Cold Pack/Ice Massage,Electric Stimulation,Hot Packs, Ultrasound Discharge Physical Therapy Discharge Reasons Goals Met Next Visit Focus/Plan Next Note Type Discharge Summary Plan of Care Dates Plan of Care Start Date 11/12/22 Plan of Care End Date 11/13/22 Electronically Signed by: Brent Pina, PT 11/12/22 3818 If you are in agreement with this Plan of Care, please return a signed and dated copy. I have reviewed this Plan of Care and certify that the skilled therapy services above are required to meet the patient?s needs. Physician Signature Date Printed Name and Credentials Clinical Instructor Signature Printed Name and Credentials
== END 2022-12-31 08:18 | disposition home or self-care (01) ==
LOC: PHYS 16:30
PROVIDERS: Family Provider Student in an Organized Health Care Education/Training Program; PCP Student in an Organized Health Care Education/Training Program; Referring Provider Orthopaedic Surgery; Visit Provider Orthopaedic Surgery
DX: S83.512D Sprain of anterior cruciate ligament of left knee, subsequent encounter (principal); M25.562 Pain in left knee; M25.662 Stiffness of left knee, not elsewhere classified; R26.89 Other abnormalities of gait and mobility
CPT/HCPCS: 97110; 97140; 97162

== ENCOUNTER → 2023-03-11 15:48 | Outpatient (CLI) | payer OTHER, SELFPAY ==
[2023-03-11 16:53] LABS: Add Manual Diff / Slide Review NO; Basophils Absolute Auto 0 /uL (0-100); Basophils Percent Auto 0.3 % (0-2); Eosinophils Absolute Auto 400 /uL (0-450); Eosinophils Percent Auto 3.4 % (2-4); Hematocrit 47.5 % (41-53); Hemoglobin 16.5 g/dL (13.5-17.5); Lymphocytes Absolute Auto 2000 /uL (1100-4500); Lymphocytes Percent Auto 16.9 % (25-40); Mean Corpuscular HGB Conc 34.8 % (30-36); Mean Corpuscular Hemoglobin 30.5 PG (26-34); Mean Corpuscular Volume 87.7 fL (80-100); Monocytes Absolute Auto 800 /uL (0-900); Monocytes Percent Auto 7.3 % (3-14); Neutrophils Absolute Auto 8300 /uL (1500-7000); Neutrophils Percent Auto 72.1 % (50-75); Platelet Count 280 X10^3/uL (150-400); Red Blood Cell Count 5.42 X10^6/uL (4.5-5.9); Red Cell Distribution Width 13.4 % (11.6-14.8); White Blood Cell Count 11.5 X10^3/uL (4.5-11.0)
[2023-03-11 17:29] LABS: Alanine Aminotransferase 33 IU/L (<50); Albumin 4.3 g/dL (3.5-5.0); Albumin Globulin Ratio 1.4 (1.0-2.8); Alkaline Phosphatase 58 U/L (38-126); Aspartate Aminotransferase 33 IU/L (17-59); Bilirubin Total 0.7 mg/dL (0.2-1.3); Blood Urea Nitrogen 13 mg/dL (9-20); Calcium 9.6 mg/dL (8.4-10.2); Carbon Dioxide 30 mmol/L (22-32); Chloride 100 mmol/L (98-107); Estimated Glomerular Filt Rate > 60 mL/min (>60); Globulin 3.1 g/dL (1.7-4.1); Glucose 81 mg/dL (70-100); HEMOLYSIS 19 (0-50); Potassium 4.2 mmol/L (3.4-5.1); Sodium 138 mmol/L (137-145); Total Protein 7.4 g/dL (6.3-8.2)
[2023-03-23 06:09] LABS: Percent Free Testosterone 2.12 % (1.50-4.20); Testosterone Total 877.2 ng/dL (264.0-916.0)
== END ==
PROVIDERS: Pediatrics; Family Provider Student in an Organized Health Care Education/Training Program; PCP Family Medicine; Referring Provider Family Medicine; Visit Provider Family Medicine
DX: R79.89 Other specified abnormal findings of blood chemistry (principal); Q55.0 Absence and aplasia of testis
CPT/HCPCS: 36415; 80053; 84402; 84403; 85025

== ENCOUNTER → 2024-02-22 16:06 | Outpatient (CLI) | payer OTHER, SELFPAY ==
[2024-02-22 17:35] LABS: Add Manual Diff / Slide Review NO; Basophils Absolute Auto 0 /uL (0-100); Basophils Percent Auto 0.5 % (0-2); Eosinophils Absolute Auto 300 /uL (0-450); Eosinophils Percent Auto 3.9 % (2-4); Hemoglobin 17.2 g/dL (13.5-17.5); Lymphocytes Absolute Auto 2000 /uL (1100-4500); Lymphocytes Percent Auto 26.5 % (25-40); Mean Corpuscular HGB Conc 34.4 % (30-36); Mean Corpuscular Hemoglobin 30.8 PG (26-34); Mean Corpuscular Volume 89.5 fL (80-100); Monocytes Absolute Auto 600 /uL (0-900); Monocytes Percent Auto 7.4 % (3-14); Neutrophils Absolute Auto 4800 /uL (1500-7000); Neutrophils Percent Auto 61.7 % (50-75); Platelet Count 292 X10^3/uL (150-400); Red Blood Cell Count 5.59 X10^6/uL (4.5-5.9); Red Cell Distribution Width 13.6 % (11.6-14.8); White Blood Cell Count 7.7 X10^3/uL (4.5-11.0)
[2024-02-22 18:48] LABS: Alanine Aminotransferase 36 IU/L (<50); Albumin 4.5 g/dL (3.5-5.0); Albumin Globulin Ratio 1.5 (1.0-2.8); Alkaline Phosphatase 68 U/L (38-126); Aspartate Aminotransferase 34 IU/L (17-59); BUN Creatinine Ratio 11.5 (6-22); Bilirubin Total 0.6 mg/dL (0.2-1.3); Blood Urea Nitrogen 15 mg/dL (9-20); Calcium 9.5 mg/dL (8.4-10.2); Carbon Dioxide 29 mmol/L (22-32); Chloride 103 mmol/L (98-107); Cholesterol 235 mg/dL (140-199); Estimated Glomerular Filt Rate > 60 mL/min (>60); Globulin 3.1 g/dL (1.7-4.1); Glucose 84 mg/dL (70-100); HDL Cholesterol 51 mg/dL (40-60); HEMOLYSIS < 15 (0-50); LDL Cholesterol Calculated 157 mg/dL (<100); Potassium 4.1 mmol/L (3.4-5.1); Sodium 137 mmol/L (137-145); Total Protein 7.6 g/dL (6.3-8.2); Triglycerides 137 mg/dL (35-150)
== END ==
PROVIDERS: Family Provider Student in an Organized Health Care Education/Training Program; PCP Family Medicine; Referring Provider Family Medicine; Visit Provider Family Medicine
DX: E78.00 Pure hypercholesterolemia, unspecified (principal); E29.1 Testicular hypofunction
CPT/HCPCS: 36415; 80053; 80061; 84402; 84403; 85025

== ENCOUNTER → 2024-10-17 09:01 | Outpatient (CLI) | payer OTHER, SELFPAY ==
[2024-10-17 09:48] LABS: Hematocrit 48.9 % (41-53); Hemoglobin 17.4 g/dL (13.5-17.5); Mean Corpuscular HGB Conc 35.5 % (30-36); Mean Corpuscular Hemoglobin 31.5 PG (26-34); Mean Corpuscular Volume 88.7 fL (80-100); Platelet Count 238 X10^3/uL (150-400)
[2024-10-17 10:35] LABS: Alanine Aminotransferase 28 IU/L (<50); Albumin 4.2 g/dL (3.5-5.0); Albumin Globulin Ratio 1.6 (1.0-2.8); Alkaline Phosphatase 66 U/L (38-126); Blood Urea Nitrogen 12 mg/dL (9-20); Calcium 9.5 mg/dL (8.4-10.2); Carbon Dioxide 27 mmol/L (22-32); Chloride 103 mmol/L (98-107); Estimated Glomerular Filt Rate > 60 mL/min (>60); Globulin 2.6 g/dL (1.7-4.1); Glucose 96 mg/dL (70-99); HEMOLYSIS 17 (0-50); Potassium 4.7 mmol/L (3.4-5.1); Sodium 138 mmol/L (137-145); Total Protein 6.8 g/dL (6.3-8.2)
== END ==
PROVIDERS: PCP Family Medicine; Referring Provider Family Medicine; Visit Provider Family Medicine
DX: E29.1 Testicular hypofunction (principal); Q55.0 Absence and aplasia of testis
CPT/HCPCS: 36415; 80053; 84403; 85027